=== PATIENT | male | born 1975 | race Caucasian/White ===

== ENCOUNTER 2016-10-28 05:44 | Emergency (ER) | payer OTHER ==
[~2016-10-28] VITALS: Ht 25.4 cm; Wt 70.0 kg
[2016-10-28] MEDS ORDERED: LORazepam 2 MG/ML VIAL IV ONE (06:15)
--- NOTE | 2016-10-28 06:21 | PD ---
HPI Chief Complaint: Barker act Time Seen by Provider: 06:18 Travel History International Travel<30 days: No Contact w/Intl Traveler<30days: No Traveled to known affect area: No History of Present Illness HPI 40-year-old white male brought into the ER under Barker act by PD. The patient was wandering out in traffic. The patient appears to be confused and disoriented. He states that there are people out after him trying to hurt him. He is not making any sense. He is not answering questions appropriately. Review the medical records indicates psychotic disorder in the past as well as polysubstance abuse. Patient denies any suicidal homicidal ideation. PFSH Past Medical History Narrative Medical Substance abuse, psychotic disorder Diminished Hearing: No Tetanus Vaccination: Unknown Past Surgical History Surgical History: Unable to Obtain Social History Alcohol Use: Yes Tobacco Use: Yes Substance Use: Yes (methaphetamines) Allergies-Medications (Allergen,Severity, Reaction): Coded Allergies: No Known Allergies (Verified , 05/23/16) Reported Meds & Prescriptions Reported Meds & Active Scripts Active No Active Prescriptions or Reported Medications Review of Systems ROS Limitations: Psychotic Physical Exam Narrative GENERAL: Well-nourished, well-developed patient. SKIN: Warm and dry. HEAD: Normocephalic and atraumatic. EYES: No scleral icterus. No injection or drainage. ENT: No nasal drainage noted. Mucous membranes pink. Airway patent. Dry mucous membranes NECK: Supple, trachea midline. Moves head freely without obvious discomfort. CARDIOVASCULAR: Regular tachycardic rate and rhythm without murmurs, gallops, or rubs. RESPIRATORY: Breath sounds equal bilaterally. No accessory muscle use. GASTROINTESTINAL: Abdomen soft, non-tender, nondistended. EXTREMITIES: No cyanosis or edema. BACK: Nontender without obvious deformity. No CVA tenderness. NEURO: Patient is alert and oriented. no sensorimotor deficits. Nonfocal. Normal speech. PSYCH: Acutely confused and delusional. Data Data Orders Complete Blood Count With Diff (10/28/16 06:15) Comprehensive Metabolic Panel (10/28/16 06:15) Iv Access Insert/Monitor (10/28/16 06:15) Psych Screen (10/28/16 06:15) Lorazepam Inj (Ativan Inj) (10/28/16 06:15) Drug Screen, Random Urine (10/28/16 06:15) Alcohol (Ethanol) (10/28/16 06:15) Salicylates (Aspirin) (10/28/16 06:15) Tylenol (Acetaminophen) (10/28/16 06:15) MDM Medical Decision Making Medical Screen Exam Complete: Yes Emergency Medical Condition: Yes Medical Record Reviewed: Yes Differential Diagnosis MDM: High Differential diagnoses: Schizophrenia, schizoaffective disorder, bipolar, anxiety, depression, adjustment reaction, mood disorder NOS, ODD, depressive disorder NOS, dementia, dementia with agitation, psychosis NOS, substance induced mood disorder, intermittent explosive disorder, Asperger syndrome, infection,electrolyte abnormality, malingering. Narrative Course Mental health screening discussed with the patient. Psychiatric screen ordered. IV access is obtained. Patient's given a liter bolus of saline and 1 mg of Ativan IV. Routine laboratories has some for analysis. I suspect this is a substance-induced psychotic disorder. Diagnosis Primary Impression: Substance-induced psychotic disorder with delusions Scripts No Active Prescriptions or Reported Meds Condition: Stable Casey Alicea Oct 28, 2016 06:21
[2016-10-28 06:31] VITALS: BP 131/90; PULSE 127; RESP 2; RESP 20; TEMP 98.6; O2SAT 99
[2016-10-28 06:38] VITALS: BP 131/90; PULSE 127; RESP 20; TEMP 98.6; O2SAT 99
[2016-10-28 06:40] LABS: AUTOMATED NEUTROPHIL # 9.1 TH/MM3 (1.8-7.7); BASOPHIL # 0.1 TH/MM3 (0-0.2); BASOPHIL % 0.5 % (0.0-2.0); EOSINOPHIL % 0.1 % (0.0-4.0); HEMATOCRIT 42.8 % (39.0-51.0); HEMO FLAGS DIFF FINAL; LYMPH % 11.7 % (9.0-44.0); LYMPHOCYTE # 1.3 TH/MM3 (1.0-4.8); MEAN CELL VOLUME 82.7 FL (80.0-100.0); MEAN CORPUSCULAR HEMOGLOBIN 27.6 PG (27.0-34.0); MEAN CORPUSCULAR HGB CONC 33.3 % (32.0-36.0); MONO % 8.4 % (0.0-8.0); NEUT % 79.3 % (16.0-70.0); PLATELET COUNT 349 TH/MM3 (150-450); RED BLOOD COUNT 5.18 MIL/MM3 (4.50-5.90); RED CELL DISTRIBUTION WIDTH 13.2 % (11.6-17.2); WHITE BLOOD COUNT 11.5 TH/MM3 (4.0-11.0)
[2016-10-28 07:03] LABS: ACETAMINOPHEN LESS THAN 2.0 MCG/ML (10.0-30.0); ALKALINE PHOSPHATASE 56 U/L (45-117); ALT (GPT) 41 U/L (12-78); ANION GAP 10 MEQ/L (5-15); AST (GOT) 53 U/L (15-37); BICARBONATE 27.9 MEQ/L (21.0-32.0); BLOOD UREA NITROGEN 23 MG/DL (7-18); CHLORIDE 99 MEQ/L (98-107); GLOMERULAR FILTRATION RATE 65 ML/MIN (>89); POTASSIUM 4.2 MEQ/L (3.5-5.1); SODIUM (NA) 137 MEQ/L (136-145); TOTAL BILIRUBIN ADULT 1.1 MG/DL (0.2-1.0)
[2016-10-28 08:52] VITALS: BP 116/68; PULSE 90; RESP 18; O2SAT 100
[2016-10-28 12:05] VITALS: BP 127/82; PULSE 107; RESP 18; O2SAT 100
[2016-10-28] MEDS ORDERED: LORazepam 2 MG/ML VIAL IV PUSH ONE (14:00)
[2016-10-28 14:46] VITALS: BP 146/94; PULSE 93; RESP 18; O2SAT 100
[2016-10-28 17:34] VITALS: BP 137/82; PULSE 119; RESP 20; TEMP 96.7; O2SAT 100
== END 2016-10-28 21:04 ==
LOC: NEPA 05:44 → NEPJ 21:04
DX: F19.959 Other psychoactive substance use, unspecified with psychoactive substance-induced psychotic disorder, unspecified (principal)
CPT/HCPCS: 80053; 80320; 85025; 96374; 96376; 99285; J2060; 80329; G0480

== ENCOUNTER 2016-11-14 03:11 | Emergency (ER) | payer OTHER ==
[~2016-11-14] VITALS: Ht 172.7 cm; Wt 65.0 kg
[2016-11-14 03:26] VITALS: BP 154/98; PULSE 119; RESP 24; TEMP 99; O2SAT 100
[2016-11-14] MEDS ORDERED: LORazepam 2 MG/ML VIAL IM ONE (03:45)
[2016-11-14] MEDS ORDERED: HALOPERIDOL LACTATE 5 MG/ML AMP IM ONE (03:45)
[2016-11-14 04:41] LABS: AUTOMATED NEUTROPHIL # 7.6 TH/MM3 (1.8-7.7); BASOPHIL % 0.4 % (0.0-2.0); EOSINOPHIL % 0.3 % (0.0-4.0); HEMATOCRIT 42.2 % (39.0-51.0); HEMO FLAGS DIFF FINAL; LYMPH % 14.8 % (9.0-44.0); LYMPHOCYTE # 1.5 TH/MM3 (1.0-4.8); MEAN CELL VOLUME 81.9 FL (80.0-100.0); MEAN CORPUSCULAR HEMOGLOBIN 27.9 PG (27.0-34.0); MEAN CORPUSCULAR HGB CONC 34.1 % (32.0-36.0); MONO % 7.1 % (0.0-8.0); NEUT % 77.4 % (16.0-70.0); PLATELET COUNT 316 TH/MM3 (150-450); RED BLOOD COUNT 5.16 MIL/MM3 (4.50-5.90); RED CELL DISTRIBUTION WIDTH 13.5 % (11.6-17.2); WHITE BLOOD COUNT 9.8 TH/MM3 (4.0-11.0)
[2016-11-14 04:54] LABS: ALKALINE PHOSPHATASE 62 U/L (45-117); ALT (GPT) 31 U/L (12-78); ANION GAP 15 MEQ/L (5-15); AST (GOT) 41 U/L (15-37); BICARBONATE 25.1 MEQ/L (21.0-32.0); BLOOD UREA NITROGEN 20 MG/DL (7-18); CHLORIDE 97 MEQ/L (98-107); GLOMERULAR FILTRATION RATE 50 ML/MIN (>89); SODIUM (NA) 137 MEQ/L (136-145); TOTAL BILIRUBIN ADULT 0.6 MG/DL (0.2-1.0)
[2016-11-14 04:56] LABS: ACETAMINOPHEN LESS THAN 2.0 MCG/ML (10.0-30.0); POTASSIUM 3.6 MEQ/L (3.5-5.1)
--- NOTE | 2016-11-14 05:12 | PD ---
HPI Chief Complaint: Psychiatric Symptoms Time Seen by Provider: 05:09 Travel History International Travel<30 days: No Contact w/Intl Traveler<30days: No Traveled to known affect area: No History of Present Illness HPI 41-year-old white male presents to emergency department under Barker act by PD. The patient is acting out and psychotic. He is medicated by Dr. Azevedo with Haldol and Ativan IV. According to the Barker act the patient appeared to be under the influence of drugs and was not making sense. He was wandering out in traffic and it was a risk to self harm. This is a patient who I have seen in the past. The patient is resting comfortable in the examination room. He is in soft restraints. The patient is unable to give any meaningful history. PFS Past Medical History Narrative Medical Substance abuse Medical History: Unable to Obtain Diminished Hearing: No Tetanus Vaccination: < 5 Years Past Surgical History Surgical History: Unable to Obtain Social History Alcohol Use: Yes Tobacco Use: Yes Substance Use: Yes (methaphetamines) Allergies-Medications (Allergen,Severity, Reaction): Coded Allergies: No Known Allergies (Verified , 11/14/16) Reported Meds & Prescriptions Reported Meds & Active Scripts Active Active Prescriptions or Reported Medications Unobtainable Review of Systems ROS Limitations: Psychotic Physical Exam Narrative GENERAL: Well-nourished, well-developed patient. SKIN: Warm and dry. HEAD: Normocephalic and atraumatic. EYES: No scleral icterus. No injection or drainage. ENT: No nasal drainage noted. Mucous membranes pink. Airway patent. NECK: Supple, trachea midline. Moves head freely without obvious discomfort. CARDIOVASCULAR: Regular rate and rhythm without murmurs, gallops, or rubs. RESPIRATORY: Breath sounds equal bilaterally. No accessory muscle use. GASTROINTESTINAL: Abdomen soft, non-tender, nondistended. EXTREMITIES: No cyanosis or edema. BACK: Nontender without obvious deformity. No CVA tenderness. NEURO: Patient is alert and oriented. no sensorimotor deficits. Nonfocal. Normal speech. PSYCH: Poor judgment. Acutely psychotic. Data Data Last Documented VS Vital Signs Date Time Temp Pulse Resp B/P Pulse Ox O2 Delivery O2 Flow Rate FiO2 11/14/16 03:26 99.0 119 24 154/98 100 Orders Complete Blood Count With Diff (11/14/16 03:40) Comprehensive Metabolic Panel (11/14/16 03:40) Urinalysis - C+S If Indicated (11/14/16 03:40) Psych Screen (11/14/16 03:40) Haloperidol Inj (Haldol Inj) (11/14/16 03:45) Lorazepam Inj (Ativan Inj) (11/14/16 03:45) Restraints Non-Violent NENA.Q3H (11/14/16 03:40) Drug Screen, Random Urine (11/14/16 03:40) Alcohol (Ethanol) (11/14/16 03:40) Salicylates (Aspirin) (11/14/16 03:40) Tylenol (Acetaminophen) (11/14/16 03:40) Labs Laboratory Tests Test 11/14/16 04:12 White Blood Count 9.8 TH/MM3 Red Blood Count 5.16 MIL/MM3 Hemoglobin 14.4 GM/DL Hematocrit 42.2 % Mean Corpuscular Volume 81.9 FL Mean Corpuscular Hemoglobin 27.9 PG Mean Corpuscular Hemoglobin 34.1 % Concent Red Cell Distribution Width 13.5 % Platelet Count 316 TH/MM3 Mean Platelet Volume 8.0 FL Neutrophils (%) (Auto) 77.4 % Lymphocytes (%) (Auto) 14.8 % Monocytes (%) (Auto) 7.1 % Eosinophils (%) (Auto) 0.3 % Basophils (%) (Auto) 0.4 % Neutrophils # (Auto) 7.6 TH/MM3 Lymphocytes # (Auto) 1.5 TH/MM3 Monocytes # (Auto) 0.7 TH/MM3 Eosinophils # (Auto) 0.0 TH/MM3 Basophils # (Auto) 0.0 TH/MM3 CBC Comment DIFF FINAL Differential Comment Sodium Level 137 MEQ/L Potassium Level 3.6 MEQ/L Chloride Level 97 MEQ/L Carbon Dioxide Level 25.1 MEQ/L Anion Gap 15 MEQ/L Blood Urea Nitrogen 20 MG/DL Creatinine 1.55 MG/DL Estimat Glomerular Filtration 50 ML/MIN Rate Random Glucose 169 MG/DL Calcium Level 9.7 MG/DL Total Bilirubin 0.6 MG/DL Aspartate Amino Transf 41 U/L (AST/SGOT) Alanine Aminotransferase 31 U/L (ALT/SGPT) Alkaline Phosphatase 62 U/L Total Protein 8.2 GM/DL Albumin 4.5 GM/DL Salicylates Level LESS THAN 1.7 MG/DL Acetaminophen Level LESS THAN 2.0 MCG/ML Ethyl Alcohol Level LESS THAN 3 MG/DL MDM Medical Decision Making Medical Screen Exam Complete: Yes Emergency Medical Condition: Yes Medical Record Reviewed: Yes Interpretation(s) Laboratory Tests Test 11/14/16 04:12 White Blood Count 9.8 TH/MM3 Red Blood Count 5.16 MIL/MM3 Hemoglobin 14.4 GM/DL Hematocrit 42.2 % Mean Corpuscular Volume 81.9 FL Mean Corpuscular Hemoglobin 27.9 PG Mean Corpuscular Hemoglobin 34.1 % Concent Red Cell Distribution Width 13.5 % Platelet Count 316 TH/MM3 Mean Platelet Volume 8.0 FL Neutrophils (%) (Auto) 77.4 % Lymphocytes (%) (Auto) 14.8 % Monocytes (%) (Auto) 7.1 % Eosinophils (%) (Auto) 0.3 % Basophils (%) (Auto) 0.4 % Neutrophils # (Auto) 7.6 TH/MM3 Lymphocytes # (Auto) 1.5 TH/MM3 Monocytes # (Auto) 0.7 TH/MM3 Eosinophils # (Auto) 0.0 TH/MM3 Basophils # (Auto) 0.0 TH/MM3 CBC Comment DIFF FINAL Differential Comment Sodium Level 137 MEQ/L Potassium Level 3.6 MEQ/L Chloride Level 97 MEQ/L Carbon Dioxide Level 25.1 MEQ/L Anion Gap 15 MEQ/L Blood Urea Nitrogen 20 MG/DL Creatinine 1.55 MG/DL Estimat Glomerular Filtration 50 ML/MIN Rate Random Glucose 169 MG/DL Calcium Level 9.7 MG/DL Total Bilirubin 0.6 MG/DL Aspartate Amino Transf 41 U/L (AST/SGOT) Alanine Aminotransferase 31 U/L (ALT/SGPT) Alkaline Phosphatase 62 U/L Total Protein 8.2 GM/DL Albumin 4.5 GM/DL Salicylates Level LESS THAN 1.7 MG/DL Acetaminophen Level LESS THAN 2.0 MCG/ML Ethyl Alcohol Level LESS THAN 3 MG/DL Differential Diagnosis MDM: High Differential diagnoses: Schizophrenia, schizoaffective disorder, bipolar, anxiety, depression, adjustment reaction, mood disorder NOS, ODD, depressive disorder NOS, dementia, dementia with agitation, psychosis NOS, substance induced mood disorder, intermittent explosive disorder, Asperger syndrome, infection,electrolyte abnormality, malingering. Narrative Course Mental health screening discussed with the patient. Psychiatric screen ordered. This is substance induced psychosis Diagnosis Primary Impression: Substance-induced psychotic disorder with delusions Scripts Unable to Obtain Active Prescriptions or Reported Meds Condition: Casey Chapman Nov 14, 2016 05:12
[2016-11-14 06:08] VITALS: BP 114/58; PULSE 94; RESP 16; O2SAT 98
--- NOTE | 2016-11-14 08:28 | PD ---
Data Data Last Documented VS Vital Signs Date Time Temp Pulse Resp B/P Pulse Ox O2 Delivery O2 Flow Rate FiO2 11/14/16 06:08 94 16 114/58 98 Room Air 11/14/16 03:26 99.0 Orders Complete Blood Count With Diff (11/14/16 03:40) Comprehensive Metabolic Panel (11/14/16 03:40) Urinalysis - C+S If Indicated (11/14/16 03:40) Psych Screen (11/14/16 03:40) Haloperidol Inj (Haldol Inj) (11/14/16 03:45) Lorazepam Inj (Ativan Inj) (11/14/16 03:45) Restraints Non-Violent NENA.Q3H (11/14/16 03:40) Drug Screen, Random Urine (11/14/16 03:40) Alcohol (Ethanol) (11/14/16 03:40) Salicylates (Aspirin) (11/14/16 03:40) Tylenol (Acetaminophen) (11/14/16 03:40) Diet Regular Basic (11/14/16 Breakfast) Labs Laboratory Tests Test 11/14/16 04:12 White Blood Count 9.8 TH/MM3 Red Blood Count 5.16 MIL/MM3 Hemoglobin 14.4 GM/DL Hematocrit 42.2 % Mean Corpuscular Volume 81.9 FL Mean Corpuscular Hemoglobin 27.9 PG Mean Corpuscular Hemoglobin 34.1 % Concent Red Cell Distribution Width 13.5 % Platelet Count 316 TH/MM3 Mean Platelet Volume 8.0 FL Neutrophils (%) (Auto) 77.4 % Lymphocytes (%) (Auto) 14.8 % Monocytes (%) (Auto) 7.1 % Eosinophils (%) (Auto) 0.3 % Basophils (%) (Auto) 0.4 % Neutrophils # (Auto) 7.6 TH/MM3 Lymphocytes # (Auto) 1.5 TH/MM3 Monocytes # (Auto) 0.7 TH/MM3 Eosinophils # (Auto) 0.0 TH/MM3 Basophils # (Auto) 0.0 TH/MM3 CBC Comment DIFF FINAL Differential Comment Sodium Level 137 MEQ/L Potassium Level 3.6 MEQ/L Chloride Level 97 MEQ/L Carbon Dioxide Level 25.1 MEQ/L Anion Gap 15 MEQ/L Blood Urea Nitrogen 20 MG/DL Creatinine 1.55 MG/DL Estimat Glomerular Filtration 50 ML/MIN Rate Random Glucose 169 MG/DL Calcium Level 9.7 MG/DL Total Bilirubin 0.6 MG/DL Aspartate Amino Transf 41 U/L (AST/SGOT) Alanine Aminotransferase 31 U/L (ALT/SGPT) Alkaline Phosphatase 62 U/L Total Protein 8.2 GM/DL Albumin 4.5 GM/DL Salicylates Level LESS THAN 1.7 MG/DL Acetaminophen Level LESS THAN 2.0 MCG/ML Ethyl Alcohol Level LESS THAN 3 MG/DL MDM Supervised Visit with HOLLY: Yes Narrative Course I, Dr. Azevedo, have reviewed the advance practice practitioner's documentation and am in agreement, met with the patient face to face, made the diagnosis, and the medical decision making was done by me. *My assessment and Findings: Agree with Fernie Everett's note has documented. Patient agitated and non- redirectable in the emergency department. He is under Barker act. He had to be placed briefly in 4-point restraints and sedated with Haldol and Ativan. Nursing did discuss the patient's father who states that he is probably using meth again and agents father has kicked him out of the house for using it. Diagnosis Primary Impression: Substance-induced psychotic disorder with delusions Scripts Unable to Obtain Active Prescriptions or Reported Meds Condition: Stable Jonny Azevedo MD Nov 14, 2016 08:28
[2016-11-14 11:22] VITALS: BP 133/64; PULSE 104; TEMP 96; O2SAT 99
[2016-11-14 14:45] VITALS: BP 112/49; PULSE 105; RESP 18; TEMP 96.1; O2SAT 98
[2016-11-14 17:58] VITALS: BP 96/50; PULSE 101; TEMP 97.1; O2SAT 98
[2016-11-14 20:15] LABS: BLOOD, URINE NEG (NEG); GLUCOSE,URINE NEG (NEG); KETONE, URINE NEG (NEG); NITRITE,URINE NEG (NEG); URINE COLOR YELLOW (YELLW/STRAW)
[2016-11-14 20:26] LABS: BACTERIA, URINE OCC /hpf; CALCIUM OXALATE CRYSTALS,URINE FEW /hpf; COMMENT (UR) CULT NOT INDICATED; CULTURE IF INDICATED CULT NOT INDICATED
[2016-11-14 21:28] LABS: AMPHETAMINE, URINE POS (NEG); BARBITURATES, URINE NEG (NEG); COCAINE, URINE NEG (NEG)
[2016-11-14 22:01] VITALS: BP 99/60; PULSE 87; RESP 19; O2SAT 99
[2016-11-15 02:17] VITALS: BP 108/55; PULSE 81; RESP 18; O2SAT 99
[2016-11-15 06:51] VITALS: BP 102/51; PULSE 77; RESP 18; O2SAT 100
== END 2016-11-15 10:53 ==
LOC: NEPA 03:11 → NEPJ 11-15 10:53
DX: F19.959 Other psychoactive substance use, unspecified with psychoactive substance-induced psychotic disorder, unspecified (principal); Z72.0 Tobacco use; F15.20 Other stimulant dependence, uncomplicated
CPT/HCPCS: 80053; 80307; 81001; 85025; 96372; 99285; J1630; J2060; 80320

== ENCOUNTER 2017-02-14 11:33 | Emergency (ER) | payer SELFPAY ==
[~2017-02-14] VITALS: Ht 180.3 cm; Wt 65.0 kg
[2017-02-14 11:46] VITALS: BP 161/91; PULSE 117; RESP 18; TEMP 98.6; O2SAT 97
[2017-02-14 12:18] LABS: AUTOMATED NEUTROPHIL # 6.1 TH/MM3 (1.8-7.7); BASOPHIL % 0.5 % (0.0-2.0); EOSINOPHIL % 0.5 % (0.0-4.0); HEMATOCRIT 42.9 % (39.0-51.0); HEMO FLAGS DIFF FINAL; LYMPH % 20.8 % (9.0-44.0); LYMPHOCYTE # 1.8 TH/MM3 (1.0-4.8); MEAN CELL VOLUME 82.8 FL (80.0-100.0); MEAN CORPUSCULAR HEMOGLOBIN 27.8 PG (27.0-34.0); MEAN CORPUSCULAR HGB CONC 33.5 % (32.0-36.0); MONO % 9.5 % (0.0-8.0); NEUT % 68.7 % (16.0-70.0); PLATELET COUNT 297 TH/MM3 (150-450); RED BLOOD COUNT 5.17 MIL/MM3 (4.50-5.90); RED CELL DISTRIBUTION WIDTH 13.2 % (11.6-17.2); WHITE BLOOD COUNT 8.8 TH/MM3 (4.0-11.0)
[2017-02-14 12:41] LABS: ANION GAP 8 MEQ/L (5-15)
[2017-02-14 12:43] LABS: ACETAMINOPHEN LESS THAN 2.0 MCG/ML (10.0-30.0); ALKALINE PHOSPHATASE 57 U/L (45-117); ALT (GPT) 33 U/L (12-78); AST (GOT) 27 U/L (15-37); BICARBONATE 28.9 MEQ/L (21.0-32.0); BLOOD UREA NITROGEN 17 MG/DL (7-18); CHLORIDE 104 MEQ/L (98-107); GLOMERULAR FILTRATION RATE 77 ML/MIN (>89); POTASSIUM 3.4 MEQ/L (3.5-5.1); SODIUM (NA) 141 MEQ/L (136-145); TOTAL BILIRUBIN ADULT 0.5 MG/DL (0.2-1.0)
--- NOTE | 2017-02-14 13:16 | PD ---
HPI Chief Complaint: Psychiatric Symptoms Time Seen by Provider: 13:11 Travel History International Travel<30 days: No Contact w/Intl Traveler<30days: No Traveled to known affect area: No History of Present Illness HPI 41-year-old male that presents to the ED for evaluation of Mcgregor ACT. Patient apparently was found at a store acting belligerent and possibly on the influence of substances. Patient states that he has not used drugs today but he does have a known history of meth abuse. Patient denies any alcohol. Patient paramedics examination is the most part noncompetitive but is unable to provide some basic answers. He is not aggressive but he is concerned about his belongings which were placed on a back when he was put in a room. He denies any pain of any kind. He denies any suicidal or homicidal ideation. Patient states that he does not want to be here. He again is a poor historian as he will not really tell me what happened and he will not tell me if he been using meth. No pain. PFSH Past Medical History Diminished Hearing: No Social History Alcohol Use: Yes Tobacco Use: Yes Substance Use: Yes Allergies-Medications (Allergen,Severity, Reaction): Coded Allergies: No Known Allergies (Verified , 11/14/16) Reported Meds & Prescriptions Reported Meds & Active Scripts Active Active Prescriptions or Reported Medications Unobtainable Review of Systems ROS Limitations: Uncooperative Except as stated in HPI: all other systems reviewed are Neg Physical Exam Exam Limitations: Uncooperative Narrative GENERAL: SKIN: Warm and dry. HEAD: Atraumatic. Normocephalic. EYES: Pupils equal and round. No scleral icterus. No injection or drainage. ENT: No nasal bleeding or discharge. Mucous membranes pink and moist. The tongue is midline. No uvula deviation. NECK: Trachea midline. No JVD. CARDIOVASCULAR: Regular rate and rhythm. No murmurs, S3, S4. RESPIRATORY: No accessory muscle use. Clear to auscultation. Breath sounds equal bilaterally. GASTROINTESTINAL: Abdomen soft, non-tender, nondistended. Hepatic and splenic margins not palpable. MUSCULOSKELETAL: Extremities without clubbing, cyanosis, or edema. No obvious deformities. Full range of motion of the upper and lower extremities bilaterally. 2+ pulses bilaterally. NEUROLOGICAL: Awake and alert. No obvious cranial nerve deficits. Motor grossly within normal limits. Five out of 5 muscle strength in the arms and legs. Normal speech. PSYCHIATRIC: Appropriate mood and affect; insight and judgment normal. Data Data Last Documented VS Vital Signs Date Time Temp Pulse Resp B/P Pulse Ox O2 Delivery O2 Flow Rate FiO2 02/14/17 11:46 98.6 117 18 161/91 97 Orders Complete Blood Count With Diff (02/14/17 11:45) Comprehensive Metabolic Panel (02/14/17 11:45) Psych Screen (02/14/17 11:45) Drug Screen, Random Urine (02/14/17 11:45) Alcohol (Ethanol) (02/14/17 11:45) Salicylates (Aspirin) (02/14/17 11:45) Tylenol (Acetaminophen) (02/14/17 11:45) Labs Laboratory Tests Test 02/14/17 11:50 White Blood Count 8.8 TH/MM3 Red Blood Count 5.17 MIL/MM3 Hemoglobin 14.4 GM/DL Hematocrit 42.9 % Mean Corpuscular Volume 82.8 FL Mean Corpuscular Hemoglobin 27.8 PG Mean Corpuscular Hemoglobin 33.5 % Concent Red Cell Distribution Width 13.2 % Platelet Count 297 TH/MM3 Mean Platelet Volume 7.4 FL Neutrophils (%) (Auto) 68.7 % Lymphocytes (%) (Auto) 20.8 % Monocytes (%) (Auto) 9.5 % Eosinophils (%) (Auto) 0.5 % Basophils (%) (Auto) 0.5 % Neutrophils # (Auto) 6.1 TH/MM3 Lymphocytes # (Auto) 1.8 TH/MM3 Monocytes # (Auto) 0.8 TH/MM3 Eosinophils # (Auto) 0.0 TH/MM3 Basophils # (Auto) 0.0 TH/MM3 CBC Comment DIFF FINAL Differential Comment Sodium Level 141 MEQ/L Potassium Level 3.4 MEQ/L Chloride Level 104 MEQ/L Carbon Dioxide Level 28.9 MEQ/L Anion Gap 8 MEQ/L Blood Urea Nitrogen 17 MG/DL Creatinine 1.06 MG/DL Estimat Glomerular Filtration 77 ML/MIN Rate Random Glucose 98 MG/DL Calcium Level 9.7 MG/DL Total Bilirubin 0.5 MG/DL Aspartate Amino Transf 27 U/L (AST/SGOT) Alanine Aminotransferase 33 U/L (ALT/SGPT) Alkaline Phosphatase 57 U/L Total Protein 8.2 GM/DL Albumin 4.5 GM/DL Salicylates Level LESS THAN 1.7 MG/DL Acetaminophen Level LESS THAN 2.0 MCG/ML Ethyl Alcohol Level LESS THAN 3 MG/DL MDM Medical Decision Making Medical Screen Exam Complete: Yes Emergency Medical Condition: Yes Medical Record Reviewed: Yes Interpretation(s) CBC & BMP Diagram 02/14/17 11:50 LFTs within normal limits. Tox negative Differential Diagnosis Substance abuse versus substance-induced psychotic disorder versus psychotic disorder versus normal exam Narrative Course 41-year-old male that presents to the ED for evaluation of substance abuse. Patient was properly examined and was found to have no signs of acute medical distress. Labs were drawn. Patient will be medically clear. Patient will be allowed to sleep of his intoxication until his medically sober he has a responsible adult to pick him up. This was discussed in my attending Dr Mike who was made aware of findings and who agrees with plan. At 1320 hrs. informed by ED nurse that apparently patient had left before anybody could stop them. Patient was not in the room. Police will be contacted. IV had been removed by nurse. At 1333 hrs patient comes to the nurse desk and tells us that his ride is coming. He apparently was walking around the ER. Patient tells that he has a right. Patient will be allowed to go home once his ride gets here. Follow with PCP. See ED worsening symptoms. Diagnosis Primary Impression: Substance abuse Referrals: [facility] Patient Instructions: General Instructions Additional Instructions: Stop using drugs. Follow with PCP. See ED worsening symptoms. Med/Other Pt SpecificInfo: No Change to Meds Scripts Unable to Obtain Active Prescriptions or Reported Meds Disposition: 07 AGAINST MEDICAL ADVICE Condition: Stable Jorje Lewis Feb 14, 2017 13:16
== END 2017-02-14 13:56 | disposition left against medical advice (07) ==
LOC: NEPE 11:33
DX: F19.10 Other psychoactive substance abuse, uncomplicated (principal); Z53.21 Procedure and treatment not carried out due to patient leaving prior to being seen by health care provider
CPT/HCPCS: 80053; 80307; 85025; 99283

== ENCOUNTER 2017-02-15 00:10 | Emergency (ER) | payer SELFPAY ==
[~2017-02-15] VITALS: Ht 177.8 cm; Wt 62.2 kg
[2017-02-15] VITALS (9 sets, daily range): BP systolic 97–155; BP diastolic 54–105; PULSE 70–119; RESP 16–18; TEMP 98.5–99; O2SAT 97–100
--- NOTE | 2017-02-15 00:37 | PD ---
HPI Chief Complaint: Pain: Acute or Chronic Time Seen by Provider: 00:34 Travel History International Travel<30 days: No Contact w/Intl Traveler<30days: No Traveled to known affect area: No History of Present Illness HPI 41-year-old male who was brought to the [facility] earlier today under Mcgregor Act for acting belligerent and suspected intoxication, released from the hospital later this evening, here voluntarily for evaluation. The patient is unable to tell me why he is here for evaluation. His thoughts are very tangential and he appears to be having auditory and visual hallucinations. When asked if he has been doing drugs today, he tells me yes, but he does not tell me what he has been taking. Chart review shows that the patient has had urine drug screens positive for amphetamines and cocaine. He is denying suicidal or homicidal ideation. Patient tells me that I do not understand what is going on with him and that there are 2 oral to miss life and he is stuck between them. He appears to be talking to people who are not present in the room. He denies any physical complaints. He is denying any pain to me. [facility] Past Medical History Medical History: Denies Significant Hx Diminished Hearing: No Tetanus Vaccination: Unknown Influenza Vaccination: No Past Surgical History Surgical History: No Previous Surgery Social History Alcohol Use: No Tobacco Use: No Substance Use: No (DENIES) Allergies-Medications (Allergen,Severity, Reaction): Coded Allergies: No Known Allergies (Verified , 02/15/17) Reported Meds & Prescriptions Reported Meds & Active Scripts Active No Active Prescriptions or Reported Medications Review of Systems Except as stated in HPI: all other systems reviewed are Neg Physical Exam Narrative GENERAL: Well-developed, well-nourished, no apparent distress. SKIN: Focused skin assessment warm/dry. No rashes. HEAD: Atraumatic. Normocephalic. EYES: Pupils equal and round. No scleral icterus. No injection or drainage. ENT: Mucous membranes pink and dry. NECK: Trachea midline. No JVD. CARDIOVASCULAR: Tachycardic, regular. RESPIRATORY: No accessory muscle use. Clear to auscultation. Breath sounds equal bilaterally. GASTROINTESTINAL: Abdomen soft, non-tender, nondistended. MUSCULOSKELETAL: No obvious deformities. No clubbing. No cyanosis. No edema. NEUROLOGICAL: Awake and alert. No obvious cranial nerve deficits. Motor grossly within normal limits. Normal speech. PSYCHIATRIC: Pressure speech. Tangential thoughts. Apparent visual and auditory hallucinations. Data Data Last Documented VS Vital Signs Date Time Temp Pulse Resp B/P Pulse Ox O2 Delivery O2 Flow Rate FiO2 02/15/17 00:26 18 02/15/17 00:14 99.0 119 155/105 98 Orders Complete Blood Count With Diff (02/15/17 00:34) Comprehensive Metabolic Panel (02/15/17 00:34) Psych Screen (02/15/17 00:34) Drug Screen, Random Urine (02/15/17 00:34) Alcohol (Ethanol) (02/15/17 00:34) Salicylates (Aspirin) (02/15/17 00:34) Tylenol (Acetaminophen) (02/15/17 00:34) Sodium Chlor 0.9% 1000 Ml Inj (Ns 1000 M (02/15/17 00:45) MDM Medical Decision Making Medical Screen Exam Complete: Yes Emergency Medical Condition: Yes Differential Diagnosis Acute psychosis, drug-induced mood disorder/psychosis Narrative Course Patient has very pressured speech and tangential thoughts. He also appears to be talking to people in the room that are not there, having both visual and auditory hallucinations. The patient is clearly a danger to himself although he is denying suicidal or homicidal ideation. He is clearly in a psychotic state. This could be drug-induced. The patient's brother spoke with the triage nurse and told her that the patient ordered a drug of the Internet which he took a couple months ago, and since that time he has not been the same. The patient had lab work earlier today which was reviewed by me and was unremarkable. Because I believe the patient is a danger to himself, I placed him under a Barker act. He'll be transported to [facility] for psychiatric evaluation. Diagnosis Primary Impression: Acute psychosis Scripts No Active Prescriptions or Reported Meds Ricco Cohn MD Feb 15, 2017 00:37
[2017-02-15] MEDS ORDERED: SODIUM CHLOR 0.9% 1000 ML INJ 1,000 ML IV ONE (00:45)
[2017-02-15 02:46] LABS: BASOPHIL # 0.1 TH/MM3 (0-0.2); BASOPHIL % 0.8 % (0.0-2.0); EOSINOPHIL # 0.1 TH/MM3 (0-0.4); HEMO FLAGS DIFF FINAL; LYMPH % 20.8 % (9.0-44.0); LYMPHOCYTE # 1.8 TH/MM3 (1.0-4.8); MEAN CELL VOLUME 82.1 FL (80.0-100.0); MEAN CORPUSCULAR HEMOGLOBIN 27.7 PG (27.0-34.0); MEAN CORPUSCULAR HGB CONC 33.8 % (32.0-36.0); MONO % 8.5 % (0.0-8.0); NEUT % 68.9 % (16.0-70.0); PLATELET COUNT 301 TH/MM3 (150-450); RED BLOOD COUNT 5.48 MIL/MM3 (4.50-5.90); RED CELL DISTRIBUTION WIDTH 13.1 % (11.6-17.2); WHITE BLOOD COUNT 8.6 TH/MM3 (4.0-11.0)
[2017-02-15 02:53] LABS: ALKALINE PHOSPHATASE 57 U/L (45-117); ALT (GPT) 34 U/L (12-78)
[2017-02-15 02:57] LABS: ANION GAP 6 MEQ/L (5-15); AST (GOT) 37 U/L (15-37); BICARBONATE 31.5 MEQ/L (21.0-32.0); BLOOD UREA NITROGEN 16 MG/DL (7-18); CHLORIDE 103 MEQ/L (98-107); GLOMERULAR FILTRATION RATE 80 ML/MIN (>89); POTASSIUM 3.7 MEQ/L (3.5-5.1); SODIUM (NA) 140 MEQ/L (136-145)
[2017-02-15 02:59] LABS: ACETAMINOPHEN LESS THAN 2.0 MCG/ML (10.0-30.0)
[2017-02-15] MEDS ORDERED: diphenhydrAMINE HCL 50 MG/ML VIAL IV PUSH ONE (04:15)
[2017-02-15] MEDS ORDERED: LORazepam 2 MG/ML VIAL IV PUSH ONE (04:15)
[2017-02-15] MEDS ORDERED: HALOPERIDOL LACTATE 5 MG/ML AMP IM ONE (04:15)
--- NOTE | 2017-02-15 04:30 | PD ---
Physical Exam Narrative General: The patient is a well-developed well-nourished male, agitated on arrival, talking to "ghosts under the bed without her having sex". Head and Neck exam: Head is normocephalic atraumatic. Eyes: EOMI, pupils are equal round and reactive to light. Nose: Midline septum with pink mucous membranes Mouth: Dentition unremarkable. Moist mucus membranes. Posterior oropharynx is not erythematous. No tonsillar hypertrophy. Uvula midline. Airway patent. Neck: No palpable lymphadenopathy. No nuchal rigidity. No thyromegaly. Cardiovascular: Sinus tachycardia in the low 100s without any murmurs gallops or rubs. No pulse deficits to the extremities on simultaneous auscultation and palpation of his radial artery Lungs: Clear to auscultation bilaterally. No wheezes, rhonchi, or rales. Abdomen: Soft, without tenderness to palpation in all 4 quadrants of the abdomen. No guarding, rebound, or rigidity. Normal bowel sounds are audible. No tenderness on palpation of McBurney's point. Extremities: No clubbing, cyanosis, or edema. 2+ pulses in all 4 extremities. No calf tenderness on palpation. Back: No costovertebral angle tenderness to palpation. Neurologic Exam: The patient has pressured speech. He is uncooperative with formal neurologic testing although has no evidence of facial asymmetry. No sensory deficits to his extremities. He has strength is 5 over 5 in all 4 extremities. Skin Exam: No rash noted. Intact skin that is warm and dry. Data Data Last Documented VS Vital Signs Date Time Temp Pulse Resp B/P Pulse Ox O2 Delivery O2 Flow Rate FiO2 02/15/17 02:16 110 16 140/86 97 Room Air 02/15/17 00:14 99.0 Orders Complete Blood Count With Diff (02/15/17 00:34) Comprehensive Metabolic Panel (02/15/17 00:34) Psych Screen (02/15/17 00:34) Drug Screen, Random Urine (02/15/17 00:34) Alcohol (Ethanol) (02/15/17 00:34) Salicylates (Aspirin) (02/15/17 00:34) Tylenol (Acetaminophen) (02/15/17 00:34) Sodium Chlor 0.9% 1000 Ml Inj (Ns 1000 M (02/15/17 00:45) Lorazepam Inj (Ativan Inj) (02/15/17 04:15) Diphenhydramine Inj (Benadryl Inj) (02/15/17 04:15) Haloperidol Inj (Haldol Inj) (02/15/17 04:15) Labs Laboratory Tests Test 02/15/17 02:25 White Blood Count 8.6 TH/MM3 Red Blood Count 5.48 MIL/MM3 Hemoglobin 15.2 GM/DL Hematocrit 45.0 % Mean Corpuscular Volume 82.1 FL Mean Corpuscular Hemoglobin 27.7 PG Mean Corpuscular Hemoglobin 33.8 % Concent Red Cell Distribution Width 13.1 % Platelet Count 301 TH/MM3 Mean Platelet Volume 7.6 FL Neutrophils (%) (Auto) 68.9 % Lymphocytes (%) (Auto) 20.8 % Monocytes (%) (Auto) 8.5 % Eosinophils (%) (Auto) 1.0 % Basophils (%) (Auto) 0.8 % Neutrophils # (Auto) 6.0 TH/MM3 Lymphocytes # (Auto) 1.8 TH/MM3 Monocytes # (Auto) 0.7 TH/MM3 Eosinophils # (Auto) 0.1 TH/MM3 Basophils # (Auto) 0.1 TH/MM3 CBC Comment DIFF FINAL Differential Comment Sodium Level 140 MEQ/L Potassium Level 3.7 MEQ/L Chloride Level 103 MEQ/L Carbon Dioxide Level 31.5 MEQ/L Anion Gap 6 MEQ/L Blood Urea Nitrogen 16 MG/DL Creatinine 1.03 MG/DL Estimat Glomerular Filtration 80 ML/MIN Rate Random Glucose 111 MG/DL Calcium Level 9.7 MG/DL Total Bilirubin 1.0 MG/DL Aspartate Amino Transf 37 U/L (AST/SGOT) Alanine Aminotransferase 34 U/L (ALT/SGPT) Alkaline Phosphatase 57 U/L Total Protein 8.5 GM/DL Albumin 4.5 GM/DL Salicylates Level LESS THAN 1.7 MG/DL Acetaminophen Level LESS THAN 2.0 MCG/ML Ethyl Alcohol Level LESS THAN 3 MG/DL [facility] Medical Record Reviewed: Yes Supervised Visit with HOLLY: No Narrative Course During the course of the patients emergency department visit, the patients history, examination, and differential diagnosis were reviewed with the patient. The patient had IV access obtained and blood work sent for analysis. The patient was on a cardiac cath tech with oximetry and blood pressure monitoring. The patient was transferred from [place] for evaluation by the psychiatric screener under a Barker act. The patient was initially provided normal saline 1 L IV fluid bolus. For agitation as the patient was and yelling intermittently in the emergency department and agitated talking to the tomas, the patient was given Ativan 2 mg IV, Benadryl 25 mg IV, Haldol 5 mg IM. The patients laboratory studies were reviewed and remarkable for a white count of 8.6, hemoglobin 15.2, platelets 301 with 8.5 monocytes, CMP was remarkable for a glucose of 111, total protein 8.5, acetaminophen less than 2, alcohol less than 3, salicylate less than 1.7 The patient has been medically cleared for evaluation under a Barker act by the psychiatric screener and psychiatrist under a Barker act. Diagnosis Primary Impression: Acute psychosis Scripts No Active Prescriptions or Reported Meds Juanis Sosa MD Feb 15, 2017 04:30
[2017-02-15 15:15] LABS: AMPHETAMINE, URINE POS (NEG); BARBITURATES, URINE NEG (NEG); COCAINE, URINE NEG (NEG)
== END 2017-02-15 21:06 ==
LOC: PHED 00:10 → NEPJ 21:06
DX: F23 Brief psychotic disorder (principal); R00.0 Tachycardia, unspecified
CPT/HCPCS: 80053; 80307; 85025; 96361; 96372; 96374; 96375; 99284; J1200; J1630; J2060; J7030

== ENCOUNTER 2017-05-13 04:28 | Emergency (ER) | payer OTHER ==
[2017-05-13] VITALS (7 sets, daily range): BP systolic 103–144; BP diastolic 56–90; PULSE 66–109; RESP 15–22; TEMP 98.9; O2SAT 94–100
[~2017-05-13] VITALS: Ht 180.3 cm; Wt 74.0 kg
[2017-05-13] MEDS ORDERED: SODIUM CHLOR 0.9% 1000 ML INJ 1,000 ML IV SCH (04:47)
--- NOTE | 2017-05-13 04:57 | PD ---
HPI Chief Complaint: psychosis Time Seen by Provider: 04:40 Travel History International Travel<30 days: No Contact w/Intl Traveler<30days: No Traveled to known affect area: No History of Present Illness HPI This patient presents under Marchman act initiated by the Police Department. According to his paperwork, "he was stating that he was seeing ghosts that they had weapons and that it was going to be a blood bath. Subject pupils are extremely constricted and he was sweating an extreme amount. Subject was not making sense and stating that people are trying to hurt him. He was talking to things that we do not see... Making statements that people at [place] machetes and are after him. Stated he was seeing ghosts and other items that officers did not see" history is limited secondary to patient agitation. On initial examination he is combative, agitated, tachycardic. He is muttering to himself that everything is wrong. Upon chart review the appears that this patient has been seen here several times in the past for substance-induced psychotic disorders, acute psychosis, methamphetamine, sympathomimetic and cocaine abuse. PFSH Past Medical History Diminished Hearing: No Social History Alcohol Use: No Tobacco Use: No Substance Use: No (DENIES) Allergies-Medications (Allergen,Severity, Reaction): Coded Allergies: No Known Allergies (Verified , 05/13/17) Reported Meds & Prescriptions Reported Meds & Active Scripts Active No Active Prescriptions or Reported Medications Review of Systems ROS Limitations: Uncooperative, Combative Except as stated in HPI: all other systems reviewed are Neg Physical Exam Exam Limitations: Uncooperative, Combative Narrative GENERAL: This is a agitated male who is combative with staff and uncooperative with history or examination. He is somewhat diaphoretic as well as tachycardic. SKIN: Warm and dry. HEAD: Atraumatic. Normocephalic. EYES: Pupils equal and round. No scleral icterus. No injection or drainage. ENT: No nasal bleeding or discharge. Mucous membranes pink and moist. NECK: Trachea midline. No JVD. CARDIOVASCULAR: Regular rate and rhythm. No murmur appreciated. RESPIRATORY: No accessory muscle use. Clear to auscultation. Breath sounds equal bilaterally. GASTROINTESTINAL: Abdomen soft, non-tender, nondistended. Hepatic and splenic margins not palpable. MUSCULOSKELETAL: No obvious deformities. No clubbing. No cyanosis. No edema. NEUROLOGICAL: Awake and alert. No obvious cranial nerve deficits. Motor grossly within normal limits. Normal speech. PSYCHIATRIC: Insight and judgment are impaired. Data Data Last Documented VS Vital Signs Date Time Temp Pulse Resp B/P (MAP) Pulse Ox O2 Delivery O2 Flow Rate FiO2 05/13/17 05:15 109 22 05/13/17 05:12 98.9 144/90 (108) 100 Orders Orders Lorazepam Inj (Ativan Inj) (05/13/17 05:00) Electrocardiogram (05/13/17 04:47) Complete Blood Count With Diff (05/13/17 04:47) Comprehensive Metabolic Panel (05/13/17 04:47) Creatine Kinase (Cpk) (05/13/17 04:47) Thyroid Stimulating Hormone (05/13/17 04:47) Sodium Chlor 0.9% 1000 Ml Inj (Ns 1000 M (05/13/17 04:47) Drug Screen, Random Urine (05/13/17 04:47) Alcohol (Ethanol) (05/13/17 04:47) Tylenol (Acetaminophen) (05/13/17 04:47) Salicylates (Aspirin) (05/13/17 04:47) Ecg Monitoring (05/13/17 04:47) Psych Screen (05/13/17 04:47) ^ Sitter (05/13/17 04:47) Restraints Violent (05/13/17 04:47) Haloperidol Inj (Haldol Inj) (05/13/17 05:02) Haloperidol Inj (Haldol Inj) (05/13/17 05:15) Lorazepam Inj (Ativan Inj) (05/13/17 05:15) Potassium Chloride (Kcl) (05/13/17 05:45) Potassium Chloride (Kcl) (05/13/17 13:45) Labs Laboratory Tests Test 05/13/17 04:45 White Blood Count 9.2 TH/MM3 Red Blood Count 5.19 MIL/MM3 Hemoglobin 14.4 GM/DL Hematocrit 43.6 % Mean Corpuscular Volume 84.0 FL Mean Corpuscular Hemoglobin 27.8 PG Mean Corpuscular Hemoglobin Concent 33.1 % Red Cell Distribution Width 13.1 % Platelet Count 340 TH/MM3 Mean Platelet Volume 7.5 FL Neutrophils (%) (Auto) 75.6 % Lymphocytes (%) (Auto) 15.7 % Monocytes (%) (Auto) 8.0 % Eosinophils (%) (Auto) 0.3 % Basophils (%) (Auto) 0.4 % Neutrophils # (Auto) 6.9 TH/MM3 Lymphocytes # (Auto) 1.4 TH/MM3 Monocytes # (Auto) 0.7 TH/MM3 Eosinophils # (Auto) 0.0 TH/MM3 Basophils # (Auto) 0.0 TH/MM3 CBC Comment DIFF FINAL Differential Comment Blood Urea Nitrogen 14 MG/DL Creatinine 1.06 MG/DL Random Glucose 114 MG/DL Total Protein 8.3 GM/DL Albumin 4.5 GM/DL Calcium Level 9.3 MG/DL Alkaline Phosphatase 63 U/L Aspartate Amino Transf (AST/SGOT) 16 U/L Alanine Aminotransferase (ALT/SGPT) 20 U/L Total Bilirubin 1.1 MG/DL Sodium Level 140 MEQ/L Potassium Level 3.1 MEQ/L Chloride Level 102 MEQ/L Carbon Dioxide Level 29.4 MEQ/L Anion Gap 9 MEQ/L Estimat Glomerular Filtration Rate 77 ML/MIN Total Creatine Kinase 242 U/L Thyroid Stimulating Hormone 3rd Gen 1.790 uIU/ML Salicylates Level LESS THAN 1.7 MG/DL Acetaminophen Level LESS THAN 2.0 MCG/ML Ethyl Alcohol Level LESS THAN 3 MG/DL MDM Medical Decision Making Medical Screen Exam Complete: Yes Emergency Medical Condition: Yes Medical Record Reviewed: Yes Differential Diagnosis Sympathomimetic toxidrome versus substance induced mood disorder versus acute psychosis versus delirium versus encephalopathy versus schizophrenia versus schizoaffective disorder Narrative Course 41-year-old male presents for evaluation of bizarre behavior, auditory and visual hallucinations. He has a history of sympathomimetic drug abuse. On initial examination is combative, agitated, somewhat diaphoretic as well as tachycardic. Most likely etiology is sympathomimetic drug abuse. 2 mg Ativan, 5 mg Haldol administered for sedation. Basic lab work, 12-lead EKG were ordered. The patient will be placed on ECG monitoring and pulse oximetry. A sitter has been ordered. IV fluids has been ordered. The patient will be placed under Barker act for further psychiatric evaluation for psychosis, hallucinations. The patient's lab work is been reviewed. Potassium is 3.1. A 40 mEq oral doses been ordered for now as well as a additional 40 mEq dose scheduled for 8 hours from now. The patient is medically cleared for psychiatric disposition. Procedures EKG Prior to Arrival: Yes Diagnosis Primary Impression: Acute psychosis Additional Impressions: Substance-induced psychotic disorder with delusions Hypokalemia Scripts No Active Prescriptions or Reported Meds Perez Lara May 13, 2017 04:57
[2017-05-13] MEDS ORDERED: LORazepam 2 MG/ML VIAL IM ONE (05:00)
[2017-05-13] MEDS ORDERED: HALOPERIDOL LACTATE 5 MG/ML AMP ONE (05:02)
[2017-05-13 05:10] LABS: AUTOMATED NEUTROPHIL # 6.9 TH/MM3 (1.8-7.7); BASOPHIL % 0.4 % (0.0-2.0); EOSINOPHIL % 0.3 % (0.0-4.0); HEMATOCRIT 43.6 % (39.0-51.0); HEMO FLAGS DIFF FINAL; LYMPH % 15.7 % (9.0-44.0); LYMPHOCYTE # 1.4 TH/MM3 (1.0-4.8); MEAN CORPUSCULAR HEMOGLOBIN 27.8 PG (27.0-34.0); MEAN CORPUSCULAR HGB CONC 33.1 % (32.0-36.0); NEUT % 75.6 % (16.0-70.0); PLATELET COUNT 340 TH/MM3 (150-450); RED BLOOD COUNT 5.19 MIL/MM3 (4.50-5.90); RED CELL DISTRIBUTION WIDTH 13.1 % (11.6-17.2); WHITE BLOOD COUNT 9.2 TH/MM3 (4.0-11.0)
[2017-05-13] MEDS ORDERED: HALOPERIDOL LACTATE 5 MG/ML AMP IM ONE (05:15)
[2017-05-13] MEDS ORDERED: LORazepam 2 MG/ML VIAL IV PUSH ONE (05:15)
[2017-05-13 05:21] LABS: ALT (GPT) 20 U/L (12-78); ANION GAP 9 MEQ/L (5-15); AST (GOT) 16 U/L (15-37); BICARBONATE 29.4 MEQ/L (21.0-32.0); BLOOD UREA NITROGEN 14 MG/DL (7-18); CHLORIDE 102 MEQ/L (98-107); GLOMERULAR FILTRATION RATE 77 ML/MIN (>89); POTASSIUM 3.1 MEQ/L (3.5-5.1); SODIUM (NA) 140 MEQ/L (136-145)
[2017-05-13 05:30] LABS: ALCOHOL LESS THAN 3 MG/DL (0-5)
[2017-05-13 05:41] LABS: ALKALINE PHOSPHATASE 63 U/L (45-117); CREATINE KINASE 242 U/L (39-308); TOTAL BILIRUBIN ADULT 1.1 MG/DL (0.2-1.0)
[2017-05-13 05:45] LABS: ACETAMINOPHEN LESS THAN 2.0 MCG/ML (10.0-30.0)
[2017-05-13] MEDS ORDERED: POTASSIUM CHLORIDE 20 MEQ CONTROLLED RELEASE TAB PO ONE ×2 (05:45→13:45)
--- NOTE | 2017-05-13 17:58 | EKG ---
Date Performed: 05/13/2017 Time Performed: 05:06:57 PTAGE: 41 years EKG: Sinus rhythm POSSIBLE LEFT ATRIAL ENLARGEMENT INCOMPLETE RIGHT BUNDLE BRANCH BLOCK BORDERLINE ECG Compared to maggie or tracing no significant change PREVIOUS TRACING : 05/23/2016 02.16 DOCTOR: Jong Sosa Interpretating Date/Time 05/13/2017 17:57:09
[2017-05-14 02:00] VITALS: BP 109/55; PULSE 73; RESP 17; O2SAT 99
[2017-05-14 06:54] VITALS: BP 101/55; PULSE 61; RESP 18
--- NOTE | 2017-05-14 09:34 | PD ---
Physical Exam Date Seen by Provider: May 14, 2017 Time Seen by Provider: 09:32 Narrative 41-year-old male previously brought in under the Barker act and Marchman act, with obvious substance abuse symptoms is now cleared by psychiatric staff. Medically the patient received 2 doses of potassium for a low potassium noted on his medical blood work. He is currently medically stable and felt to be safe for discharge at this time. Please see discharge instructions from psychiatric staff. Data Data Last Documented VS Vital Signs Date Time Temp Pulse Resp B/P (MAP) Pulse Ox O2 Delivery O2 Flow Rate FiO2 05/14/17 06:54 61 18 101/55 (70) Room Air 05/14/17 02:00 99 05/13/17 05:12 98.9 Orders Orders Lorazepam Inj (Ativan Inj) (05/13/17 05:00) Electrocardiogram (05/13/17 04:47) Complete Blood Count With Diff (05/13/17 04:47) Comprehensive Metabolic Panel (05/13/17 04:47) Creatine Kinase (Cpk) (05/13/17 04:47) Thyroid Stimulating Hormone (05/13/17 04:47) Sodium Chlor 0.9% 1000 Ml Inj (Ns 1000 M (05/13/17 04:47) Drug Screen, Random Urine (05/13/17 04:47) Alcohol (Ethanol) (05/13/17 04:47) Tylenol (Acetaminophen) (05/13/17 04:47) Salicylates (Aspirin) (05/13/17 04:47) Ecg Monitoring (05/13/17 04:47) Psych Screen (05/13/17 04:47) ^ Sitter (05/13/17 04:47) Restraints Violent (05/13/17 04:47) Haloperidol Inj (Haldol Inj) (05/13/17 05:02) Haloperidol Inj (Haldol Inj) (05/13/17 05:15) Lorazepam Inj (Ativan Inj) (05/13/17 05:15) Potassium Chloride (Kcl) (05/13/17 05:45) Potassium Chloride (Kcl) (05/13/17 13:45) Diet Regular Basic (05/13/17 Lunch) Diet Regular Basic (05/13/17 Dinner) Diet Regular Basic (05/14/17 Breakfast) Diet Regular Basic (05/14/17 Lunch) Labs Laboratory Tests Test 05/13/17 04:45 05/13/17 12:20 White Blood Count 9.2 TH/MM3 Red Blood Count 5.19 MIL/MM3 Hemoglobin 14.4 GM/DL Hematocrit 43.6 % Mean Corpuscular Volume 84.0 FL Mean Corpuscular Hemoglobin 27.8 PG Mean Corpuscular Hemoglobin Concent 33.1 % Red Cell Distribution Width 13.1 % Platelet Count 340 TH/MM3 Mean Platelet Volume 7.5 FL Neutrophils (%) (Auto) 75.6 % Lymphocytes (%) (Auto) 15.7 % Monocytes (%) (Auto) 8.0 % Eosinophils (%) (Auto) 0.3 % Basophils (%) (Auto) 0.4 % Neutrophils # (Auto) 6.9 TH/MM3 Lymphocytes # (Auto) 1.4 TH/MM3 Monocytes # (Auto) 0.7 TH/MM3 Eosinophils # (Auto) 0.0 TH/MM3 Basophils # (Auto) 0.0 TH/MM3 CBC Comment DIFF FINAL Differential Comment Blood Urea Nitrogen 14 MG/DL Creatinine 1.06 MG/DL Random Glucose 114 MG/DL Total Protein 8.3 GM/DL Albumin 4.5 GM/DL Calcium Level 9.3 MG/DL Alkaline Phosphatase 63 U/L Aspartate Amino Transf (AST/SGOT) 16 U/L Alanine Aminotransferase (ALT/SGPT) 20 U/L Total Bilirubin 1.1 MG/DL Sodium Level 140 MEQ/L Potassium Level 3.1 MEQ/L Chloride Level 102 MEQ/L Carbon Dioxide Level 29.4 MEQ/L Anion Gap 9 MEQ/L Estimat Glomerular Filtration Rate 77 ML/MIN Total Creatine Kinase 242 U/L Thyroid Stimulating Hormone 3rd Gen 1.790 uIU/ML Salicylates Level LESS THAN 1.7 MG/DL Acetaminophen Level LESS THAN 2.0 MCG/ML Ethyl Alcohol Level LESS THAN 3 MG/DL Urine Opiates Screen NEG Urine Barbiturates Screen NEG Urine Amphetamines Screen POS Urine Benzodiazepines Screen NEG Urine Cocaine Screen NEG Urine Cannabinoids Screen NEG MDM Medical Record Reviewed: Yes Supervised Visit with HOLLY: Yes Narrative Course 41-year-old male previously brought in under the Barker act and Marchman act, with obvious substance abuse symptoms is now cleared by psychiatric staff. Medically the patient received 2 doses of potassium for a low potassium noted on his medical blood work. He is currently medically stable and felt to be safe for discharge at this time. Please see discharge instructions from psychiatric staff. Diagnosis Primary Impression: Acute psychosis Additional Impressions: Substance-induced psychotic disorder with delusions Hypokalemia Patient Instructions: General Instructions Scripts No Active Prescriptions or Reported Meds Disposition: 01 DISCHARGE HOME Condition: Stable Nicholas Dawson May 14, 2017 09:33
--- NOTE | 2017-05-14 09:46 | PD ---
History of Present Illness Chief Complaint: Psychiatric Symptoms Time Seen by Provider: 09:15 Travel History International Travel<30 Days: No Contact w/Intl Traveler<30days: No Known affected area: No Legal Status Legal Status: Barker Act Barker Act Signed By: Patient accompanied by 2x BA's & a Jeffry's Act Barker Act Comment: Patient accompanied by 2x BA's & a Jeffry's Act History of Present Illness: History of Present Illness HPI This patient is a 41 year old male with history of substance-induced psychotic disorders, acute psychosis, methamphetamine, and cocaine abuse who presents to ED under a Ba initiated by [facility] as well as a second BA initiated by provider at [facility]. As per the documentation it is alleged that he was seeing ghosts and that they had weapons and that it was going to be a blood bath. He was talking that people were after him and talking to things that were not there. Patient was initially combative, agitated. EMR is reviewed. Toxicology is positive for amphetamines. Nurse reports that patient stated he had been up for a few days. gila has been monitored in J pod and he has been sleeping with no behavioral concerns. This morning he is asleep but awakens easily. He is calm, speech is clear and logical. He denies any hallucinations, denies any paranoid thoughts and denies any suicidal or homicidal ideation. He does not appear internally stimulated. PFSH Past Medical History Diminished Hearing: No Psychiatric History Psychiatric History Hx Psychiatric Treatment: Patient denies having any current psychiatric History of Inpatient Treatment: No Guns or firearms in home: No Social History Single male. Hx Alcohol Use: No Hx Tobacco Use: No Hx Substance Use: No (DENIES) Substance Use Type: Amphetamines-Stimulants, Other Other Substances Used: pt stated i do whatever i want to do occasionaly, but not often Hx of Substance Use Treatment: No Family Psychiatric History None reported Allergies-Medications (Allergen,Severity, Reaction): Coded Allergies: No Known Allergies (Verified , 05/13/17) Reported Meds & Prescriptions Reported Meds & Active Scripts Active No Active Prescriptions or Reported Medications Review of Systems Except as stated in HPI: all other systems reviewed are Neg Exam Alert: Yes [place]: Person (ox4) Mood: Calm Affect: Appropriate Speech: Clear, Logical Eye Contact: Indirect Memory Intact: Comment (no impairmetn) Hallucinations: Other (deneis any) Delusions: No Suicidal: Ideation (deneis any) Homicidal: Ideation (deneis any) Insight/Judgement Poor. Not impaired. MDM Medical Decision Making Medical Record Reviewed: Yes Assessment/Plan This patient is a 41 year old male with history of substance-induced psychotic disorders, acute psychosis, methamphetamine, and cocaine abuse who presents to ED under a Ba initiated by [facility] as well as a second BA initiated by provider at [facility]. Patient aloud to sleep while monitored and presented no behavioral concerns, no psychosis and no suicidality. At this time the patient does not present any unstable mental illness as defined under the Barker Act. He is at a precontemplative stage fin terms of his i substance use. he will be provided with resources in the community such as [facility]. The patient is psychiatrically clear fro discharge from ED. BA x 2 lifted. Orders Orders Diet Regular Basic (05/13/17 Lunch) Diet Regular Basic (05/13/17 Dinner) Diet Regular Basic (05/14/17 Breakfast) Diet Regular Basic (05/14/17 Lunch) Results Vital Signs Date Time Temp Pulse Resp B/P (MAP) Pulse Ox O2 Delivery O2 Flow Rate FiO2 05/14/17 06:54 61 18 101/55 (70) Room Air 05/14/17 02:00 73 17 109/55 (73) 99 Room Air 05/13/17 22:02 66 18 104/56 (72) 94 Room Air 05/13/17 18:33 84 18 120/68 (85) 100 Room Air 05/13/17 16:20 70 18 117/62 (80) 97 Room Air 05/13/17 11:39 109 16 117/77 (90) 98 Room Air 05/13/17 09:35 76 16 103/61 (75) 97 Room Air Laboratory Tests Test 05/13/17 12:20 Urine Opiates Screen NEG Urine Barbiturates Screen NEG Urine Amphetamines Screen POS Urine Benzodiazepines Screen NEG Urine Cocaine Screen NEG Urine Cannabinoids Screen NEG Diagnosis Primary Impression: Amphetamine-induced psychotic disorder Psychiatrically Cleared: Yes Prescriptions No Active Prescriptions or Reported Meds Disposition: DISCHARGE HOME Condition: Stable Problem Qualifiers Primary Impression: Amphetamine-induced psychotic disorder Qualified Codes: F15.951 - Other stimulant use, unspecified with stimulant- induced psychotic disorder with hallucinations Kindra Vinson May 14, 2017 09:46
[2017-05-14 10:21] VITALS: BP 107/74; PULSE 68; RESP 16; O2SAT 96
== END 2017-05-14 10:49 | disposition home or self-care (01) ==
LOC: NEPD 04:28 → NEPJ 05-14 10:49
DX: F15.159 Other stimulant abuse with stimulant-induced psychotic disorder, unspecified (principal); F14.10 Cocaine abuse, uncomplicated; I45.10 Unspecified right bundle-branch block; E87.6 Hypokalemia; R00.0 Tachycardia, unspecified
CPT/HCPCS: 80053; 80307; 82550; 84443; 85025; 93005; 96361; 96372; 96374; 99285; J1630; J2060; J7030

== ENCOUNTER 2017-05-15 23:17 | Emergency (ER) | payer MEDICAID ==
[~2017-05-15] VITALS: Ht 177.8 cm; Wt 62.0 kg
[2017-05-15 23:29] VITALS: BP 156/89; PULSE 111; RESP 18; TEMP 98.2; O2SAT 97
== END 2017-05-15 23:55 | disposition left against medical advice (07) ==
LOC: PHED 23:17
DX: F41.9 Anxiety disorder, unspecified (principal); R44.3 Hallucinations, unspecified; Z53.21 Procedure and treatment not carried out due to patient leaving prior to being seen by health care provider
CPT/HCPCS: 99281

== ENCOUNTER 2017-05-16 00:19 | Emergency (ER) | payer MEDICAID ==
[~2017-05-16] VITALS: Ht 177.8 cm; Wt 65.0 kg
[2017-05-16 00:22] VITALS: BP 140/89; RESP 16; TEMP 98.8; O2SAT 98
--- NOTE | 2017-05-16 00:51 | PD ---
HPI Chief Complaint: Psychiatric Symptoms Time Seen by Provider: 00:38 Travel History International Travel<30 days: No Contact w/Intl Traveler<30days: No Traveled to known affect area: No History of Present Illness HPI 41-year-old white male presents to emergency department requesting a evaluation to ensure that he is okay. He states that he sees ghosts chasing him. He states that he feels that he is been shot in the head. The patient states that he would like to have some lab tests done to ensure that he is okay. He denies any suicidal or homicidal ideation. This is a patient who is been seen in the ER and evaluated by to psych in the past. He's had a history of substance induced psychosis. The patient has no history of suicide in past. He denies any toxic ingestions. He denies any specific medical complaints. [facility] Past Medical History Narrative Medical Anxiety, substance abuse Anxiety: Yes Diminished Hearing: No Tetanus Vaccination: < 5 Years Past Surgical History Surgical History: No Previous Surgery Social History Alcohol Use: No Tobacco Use: No Substance Use: Yes Allergies-Medications (Allergen,Severity, Reaction): Coded Allergies: No Known Allergies (Verified , 05/15/17) Reported Meds & Prescriptions Reported Meds & Active Scripts Active No Active Prescriptions or Reported Medications Review of Systems Except as stated in HPI: all other systems reviewed are Neg Physical Exam Narrative GENERAL: Well-nourished, well-developed patient. SKIN: Warm and dry. HEAD: Normocephalic and atraumatic. EYES: No scleral icterus. No injection or drainage. ENT: No nasal drainage noted. Mucous membranes pink. Airway patent. NECK: Supple, trachea midline. Moves head freely without obvious discomfort. CARDIOVASCULAR: Regular rate and rhythm without murmurs, gallops, or rubs. RESPIRATORY: Breath sounds equal bilaterally. No accessory muscle use. GASTROINTESTINAL: Abdomen soft, non-tender, nondistended. EXTREMITIES: No cyanosis or edema. BACK: Nontender without obvious deformity. No CVA tenderness. NEURO: Patient is alert and oriented. no sensorimotor deficits. Nonfocal. Normal speech. PSYCH: Patient is acutely delusional. He states that he's seeing ghosts chasing him. Data Data Last Documented VS Vital Signs Date Time Temp Pulse Resp B/P (MAP) Pulse Ox O2 Delivery O2 Flow Rate FiO2 05/16/17 00:22 98.8 16 140/89 (106) 98 Room Air MDM Medical Decision Making Medical Screen Exam Complete: Yes Emergency Medical Condition: Yes Medical Record Reviewed: Yes Differential Diagnosis MDM: High Differential diagnoses: Schizophrenia, schizoaffective disorder, bipolar, anxiety, depression, adjustment reaction, mood disorder NOS, psychosis NOS, substance induced mood disorder, iinfection,electrolyte abnormality, malingering. Narrative Course This is a 41-year-old white male who presents on a voluntary basis for a medical evaluation. He is delusional but he is not a threat to himself or others. He is accompanied by his small dog who is with him. Dog does not appear to be malnourished or inappropriately cared for. The patient does not meet criteria for Barker act. There is no additional testing that needs to be done. The patient does have a history of substance abuse in the past along with substance induced psychosis. The patient is been medically cleared. Brief psychotic disorder, substance abuse Diagnosis Primary Impression: Brief psychotic disorder Additional Impression: Substance abuse Patient Instructions: General Instructions Additional Instructions: Rest. Follow-up with [facility] for evaluation. Return to the ER for emergencies. Med/Other Pt SpecificInfo: No Meds Exist/No RX given Scripts No Active Prescriptions or Reported Meds Disposition: 01 DISCHARGE HOME Condition: Stable Casey Alicea May 16, 2017 00:51
== END 2017-05-16 01:10 | disposition home or self-care (01) ==
LOC: NEPD 00:19
DX: F23 Brief psychotic disorder (principal); F19.10 Other psychoactive substance abuse, uncomplicated; F41.9 Anxiety disorder, unspecified
CPT/HCPCS: 99282

== ENCOUNTER 2017-09-23 18:41 | Emergency (ER) | payer MEDICAID, OTHER ==
[~2017-09-23] VITALS: Ht 165.1 cm; Wt 70.0 kg
[2017-09-23 19:26] VITALS: BP 157/87; PULSE 125; RESP 19; TEMP 98.9; O2SAT 97
[2017-09-23] MEDS ORDERED: SODIUM CHLOR 0.9% 1000 ML INJ 1,000 ML IV ONE ×2 (19:45→21:30)
--- NOTE | 2017-09-23 19:49 | PD ---
HPI Chief Complaint: Psychiatric Symptoms Time Seen by Provider: 19:29 Travel History International Travel<30 days: No Contact w/Intl Traveler<30days: No Traveled to known affect area: No History of Present Illness HPI 41-year-old male brought in by PD under Barker act. According to the Barker act the patient was running around his neighborhood banging on doors and running in front of vehicles. According to the patient's father he is currently high unmet. His father reports that he has an issue with narcotics which brings about this behavior and he believes that he will end up hurting himself or someone else. Barker act states that the patient seems very paranoid and stated that there are ghosts chasing him and he was hiding under cars and behind chairs. On my assessment the patient has very poor eye contact and does not answer all my questions. He denies using any illicit drugs. He is calm. PFSH Past Medical History Medical History: Denies Significant Hx Anxiety: Yes Diminished Hearing: No Immunizations Current: Yes Social History Alcohol Use: No Tobacco Use: Yes Substance Use: Yes (METH) Allergies-Medications (Allergen,Severity, Reaction): Coded Allergies: No Known Allergies (Verified , 05/15/17) Reported Meds & Prescriptions Reported Meds & Active Scripts Active No Active Prescriptions or Reported Medications Review of Systems ROS Limitations: Intoxication Physical Exam Narrative GENERAL: Well-developed, well-nourished, calm, poor eye contact, no apparent distress. SKIN: Focused skin assessment warm/dry. HEAD: Atraumatic. Normocephalic. EYES: Pupils equal and round. No scleral icterus. No injection or drainage. ENT: No nasal bleeding or discharge. Mucous membranes pink and moist. NECK: Trachea midline. No JVD. CARDIOVASCULAR: Tachycardic, rate 120s, regular. RESPIRATORY: No accessory muscle use. Clear to auscultation. Breath sounds equal bilaterally. GASTROINTESTINAL: Abdomen soft, non-tender, nondistended. MUSCULOSKELETAL: No obvious deformities. No clubbing. No cyanosis. No edema. NEUROLOGICAL: Awake and alert. No obvious cranial nerve deficits. Motor grossly within normal limits. Normal speech. PSYCHIATRIC: Poor eye contact. Flat affect. Data Data Last Documented VS Vital Signs Date Time Temp Pulse Resp B/P (MAP) Pulse Ox O2 Delivery O2 Flow Rate FiO2 09/24/17 00:15 115 20 150/100 (117) 96 Room Air 09/23/17 22:57 98.6 Orders Orders Complete Blood Count With Diff (09/23/17 19:33) Comprehensive Metabolic Panel (09/23/17 19:33) Psych Screen (09/23/17 19:33) Drug Screen, Random Urine (09/23/17 19:33) Alcohol (Ethanol) (09/23/17 19:33) Salicylates (Aspirin) (09/23/17 19:33) Tylenol (Acetaminophen) (09/23/17 19:33) Sodium Chlor 0.9% 1000 Ml Inj (Ns 1000 M (09/23/17 19:45) Lorazepam Inj (Ativan Inj) (09/23/17 20:00) Lorazepam Inj (Ativan Inj) (09/23/17 19:57) Sodium Chlor 0.9% 1000 Ml Inj (Ns 1000 M (09/23/17 21:30) Lorazepam Inj (Ativan Inj) (09/23/17 22:45) Creatine Kinase (Cpk) (09/24/17 00:14) CKMB (09/23/17 19:40) CKMB% (09/23/17 19:40) Olanzapine Inj (Zyprexa Inj) (09/24/17 01:00) Lorazepam Inj (Ativan Inj) (09/24/17 01:00) Labs Laboratory Tests Test 09/23/17 19:40 09/23/17 23:00 White Blood Count 14.5 TH/MM3 Red Blood Count 5.50 MIL/MM3 Hemoglobin 15.4 GM/DL Hematocrit 47.0 % Mean Corpuscular Volume 85.4 FL Mean Corpuscular Hemoglobin 27.9 PG Mean Corpuscular Hemoglobin Concent 32.7 % Red Cell Distribution Width 13.8 % Platelet Count 341 TH/MM3 Mean Platelet Volume 8.2 FL Neutrophils (%) (Auto) 84.9 % Lymphocytes (%) (Auto) 6.6 % Monocytes (%) (Auto) 8.3 % Eosinophils (%) (Auto) 0.0 % Basophils (%) (Auto) 0.2 % Neutrophils # (Auto) 12.3 TH/MM3 Lymphocytes # (Auto) 1.0 TH/MM3 Monocytes # (Auto) 1.2 TH/MM3 Eosinophils # (Auto) 0.0 TH/MM3 Basophils # (Auto) 0.0 TH/MM3 CBC Comment DIFF FINAL Differential Comment Blood Urea Nitrogen 17 MG/DL Creatinine 1.30 MG/DL Random Glucose 121 MG/DL Total Protein 9.1 GM/DL Albumin 4.8 GM/DL Calcium Level 9.5 MG/DL Alkaline Phosphatase 81 U/L Aspartate Amino Transf (AST/SGOT) 47 U/L Alanine Aminotransferase (ALT/SGPT) 42 U/L Total Bilirubin 0.6 MG/DL Sodium Level 142 MEQ/L Potassium Level 3.7 MEQ/L Chloride Level 103 MEQ/L Carbon Dioxide Level 29.3 MEQ/L Anion Gap 10 MEQ/L Estimat Glomerular Filtration Rate 61 ML/MIN Total Creatine Kinase 860 U/L Salicylates Level LESS THAN 1.7 MG/DL Acetaminophen Level LESS THAN 2.0 MCG/ML Ethyl Alcohol Level LESS THAN 3 MG/DL Urine Opiates Screen NEG Urine Barbiturates Screen NEG Urine Amphetamines Screen POS Urine Benzodiazepines Screen NEG Urine Cocaine Screen NEG Urine Cannabinoids Screen NEG MDM Medical Decision Making Medical Screen Exam Complete: Yes Emergency Medical Condition: Yes Differential Diagnosis Substance-induced mood disorder, acute psychosis. Narrative Course Patient became agitated shortly after arrival to the emergency department and was a danger to himself and to staff, so he was placed in restraints and given Ativan for sedation. Initial vital signs show heart rate 125, blood pressure 157/87, pulse ox 97% on room air, oral temp of 98.9F. CBC: WBC 14.5, hemoglobin 15.4, hematocrit 47, platelets 341, neutrophils 85%. CMP is essentially unremarkable. Tylenol, alcohol, and salicylate levels are negative. Total CK is 860. The patient was provided 3 L of normal saline IV. Patient's slight leukocytosis is nonspecific. He does remain tachycardic with a heart rate of 110-115 bpm, sinus, and this is most likely secondary to amphetamine use. When talking with him he is awake and alert, however he tells me that he feels as though someone is shooting at him with a machine gun and appears to be having auditory and visual hallucinations. Past toxicology screens have shown amphetamines. He has not yet provided a urine sample for us today. At this point he is medically cleared for psychiatric evaluation and disposition by them. Urine drug screen is positive for amphetamines. 12:54 AM: An attempt was made to remove the patient's physical restraints, and during removal of the patient became increasingly agitated and physically aggressive towards staff. He remains both a danger to himself and to staff. Restraints were reapplied, and the patient was given Ativan and Zyprexa for chemical sedation. Diagnosis Primary Impression: Acute psychosis Additional Impression: Amphetamine abuse Scripts No Active Prescriptions or Reported Meds Ricco Cohn MD Sep 23, 2017 19:49
[2017-09-23] MEDS ORDERED: LORazepam 2 MG/ML VIAL ONE (19:57)
[2017-09-23] MEDS ORDERED: LORazepam 2 MG/ML VIAL IV PUSH ONE ×2 (20:00→22:45)
[2017-09-23 21:16] LABS: AUTOMATED NEUTROPHIL # 12.3 TH/MM3 (1.8-7.7); BASOPHIL % 0.2 % (0.0-2.0); HEMOGLOBIN 15.4 GM/DL (13.0-17.0); LYMPH % 6.6 % (9.0-44.0); MEAN CELL VOLUME 85.4 FL (80.0-100.0); MEAN CORPUSCULAR HEMOGLOBIN 27.9 PG (27.0-34.0); MEAN CORPUSCULAR HGB CONC 32.7 % (32.0-36.0); MEAN PLATELET VOLUME 8.2 FL (7.0-11.0); MONO % 8.3 % (0.0-8.0); MONOCYTE # 1.2 TH/MM3 (0-0.9); NEUT % 84.9 % (16.0-70.0); PLATELET COUNT 341 TH/MM3 (150-450); RED CELL DISTRIBUTION WIDTH 13.8 % (11.6-17.2); WHITE BLOOD COUNT 14.5 TH/MM3 (4.0-11.0)
[2017-09-23 21:18] VITALS: BP 178/86; PULSE 136; RESP 20; O2SAT 95
[2017-09-23 21:44] LABS: ALBUMIN 4.8 GM/DL (3.4-5.0); ALKALINE PHOSPHATASE 81 U/L (45-117); ALT (GPT) 42 U/L (12-78); AST (GOT) 47 U/L (15-37); BICARBONATE 29.3 MEQ/L (21.0-32.0); BLOOD UREA NITROGEN 17 MG/DL (7-18); CALCIUM 9.5 MG/DL (8.5-10.1); CHLORIDE 103 MEQ/L (98-107); GLOMERULAR FILTRATION RATE 61 ML/MIN (>89); GLUCOSE,RANDOM 121 MG/DL (74-106); SODIUM (NA) 142 MEQ/L (136-145); TOTAL BILIRUBIN ADULT 0.6 MG/DL (0.2-1.0); TOTAL PROTEIN 9.1 GM/DL (6.4-8.2)
[2017-09-23 21:46] LABS: ACETAMINOPHEN LESS THAN 2.0 MCG/ML (10.0-30.0)
[2017-09-23 22:57] VITALS: BP 164/87; PULSE 126; RESP 20; TEMP 98.6; O2SAT 96
[2017-09-24] VITALS (7 sets, daily range): BP systolic 119–150; BP diastolic 60–100; PULSE 69–121; RESP 16–20; O2SAT 96–100
[2017-09-24] MEDS ORDERED: LORazepam 2 MG/ML VIAL IM ONE (01:00)
[2017-09-24] MEDS ORDERED: OLANZapine IM 10 MG VIAL IM ONE (01:00)
--- NOTE | 2017-09-24 13:30 | PD ---
Physical Exam Time Seen by Provider: 13:30 Data Data Last Documented VS Vital Signs Date Time Temp Pulse Resp B/P (MAP) Pulse Ox O2 Delivery O2 Flow Rate FiO2 09/24/17 12:00 101 20 123/85 (98) 100 Room Air 09/23/17 22:57 98.6 Orders Orders Complete Blood Count With Diff (09/23/17 19:33) Comprehensive Metabolic Panel (09/23/17 19:33) Psych Screen (09/23/17 19:33) Drug Screen, Random Urine (09/23/17 19:33) Alcohol (Ethanol) (09/23/17 19:33) Salicylates (Aspirin) (09/23/17 19:33) Tylenol (Acetaminophen) (09/23/17 19:33) Sodium Chlor 0.9% 1000 Ml Inj (Ns 1000 M (09/23/17 19:45) Lorazepam Inj (Ativan Inj) (09/23/17 20:00) Lorazepam Inj (Ativan Inj) (09/23/17 19:57) Sodium Chlor 0.9% 1000 Ml Inj (Ns 1000 M (09/23/17 21:30) Lorazepam Inj (Ativan Inj) (09/23/17 22:45) Creatine Kinase (Cpk) (09/24/17 00:14) CKMB (09/23/17 19:40) CKMB% (09/23/17 19:40) Olanzapine Inj (Zyprexa Inj) (09/24/17 01:00) Lorazepam Inj (Ativan Inj) (09/24/17 01:00) Diet Regular Basic (09/24/17 Breakfast) Ed Discharge Order (09/24/17 13:29) Labs Laboratory Tests Test 09/23/17 19:40 09/23/17 23:00 White Blood Count 14.5 TH/MM3 Red Blood Count 5.50 MIL/MM3 Hemoglobin 15.4 GM/DL Hematocrit 47.0 % Mean Corpuscular Volume 85.4 FL Mean Corpuscular Hemoglobin 27.9 PG Mean Corpuscular Hemoglobin Concent 32.7 % Red Cell Distribution Width 13.8 % Platelet Count 341 TH/MM3 Mean Platelet Volume 8.2 FL Neutrophils (%) (Auto) 84.9 % Lymphocytes (%) (Auto) 6.6 % Monocytes (%) (Auto) 8.3 % Eosinophils (%) (Auto) 0.0 % Basophils (%) (Auto) 0.2 % Neutrophils # (Auto) 12.3 TH/MM3 Lymphocytes # (Auto) 1.0 TH/MM3 Monocytes # (Auto) 1.2 TH/MM3 Eosinophils # (Auto) 0.0 TH/MM3 Basophils # (Auto) 0.0 TH/MM3 CBC Comment DIFF FINAL Differential Comment Blood Urea Nitrogen 17 MG/DL Creatinine 1.30 MG/DL Random Glucose 121 MG/DL Total Protein 9.1 GM/DL Albumin 4.8 GM/DL Calcium Level 9.5 MG/DL Alkaline Phosphatase 81 U/L Aspartate Amino Transf (AST/SGOT) 47 U/L Alanine Aminotransferase (ALT/SGPT) 42 U/L Total Bilirubin 0.6 MG/DL Sodium Level 142 MEQ/L Potassium Level 3.7 MEQ/L Chloride Level 103 MEQ/L Carbon Dioxide Level 29.3 MEQ/L Anion Gap 10 MEQ/L Estimat Glomerular Filtration Rate 61 ML/MIN Total Creatine Kinase 860 U/L Creatine Kinase MB 9.9 NG/ML Creatine Kinase MB % 1.2 % Salicylates Level LESS THAN 1.7 MG/DL Acetaminophen Level LESS THAN 2.0 MCG/ML Ethyl Alcohol Level LESS THAN 3 MG/DL Urine Opiates Screen NEG Urine Barbiturates Screen NEG Urine Amphetamines Screen POS Urine Benzodiazepines Screen NEG Urine Cocaine Screen NEG Urine Cannabinoids Screen NEG MDM Medical Record Reviewed: Yes Supervised Visit with HOLLY: No Narrative Course See previous providers notes. This patient's Barker act has been lifted by psychiatry and he has been dealing clear by psychiatry. He has no medical issues that would warrant additional hospitalization. He is stable for discharge. Diagnosis Primary Impression: Acute psychosis Additional Impression: Amphetamine abuse Scripts Unable to Obtain Active Prescriptions or Reported Meds Perez Lara Sep 24, 2017 13:30
--- NOTE | 2017-09-24 13:50 | PD ---
History of Present Illness Chief Complaint: Psychiatric Symptoms Time Seen by Provider: 13:30 Travel History International Travel<30 Days: No Contact w/Intl Traveler<30days: No Known affected area: No Legal Status Legal Status: Barker Act History of Present Illness: 41-year-old male brought in under a Barker act for allegedly running around his neighborhood, banging on doors, running in front of vehicles, paranoid and stating ghosts were chasing him. He was reportedly hiding under cars and behind chairs. Patient is noted to be positive for amphetamines. Patient's father reported he acts like this when he is using narcotics. Patient admits to using narcotics "sometimes" and reports his behavior last night could have been related to his use. At this time he is not intoxicated and demonstrates no psychotic thinking. He denies any suicidal or homicidal ideation, plan or intent. His cognition is intact. He was offered transportation and a referral to [facility] but he declined. He states he has been there and has no wish to go back. He actually wants to continue using narcotics as he sees fit. He states his father will allow him to come home. He is verbally shmuel for safety and he is competent to do so. [facility] Past Medical History Medical History: Denies Significant Hx Anxiety: Yes Diminished Hearing: No Immunizations Current: Yes Psychiatric History Psychiatric History Hx Psychiatric Treatment: Patient denies having any current psychiatric History of Inpatient Treatment: No Guns or firearms in home: No Social History Hx Alcohol Use: No Hx Tobacco Use: Yes Hx Substance Use: Yes (METH) Substance Use Type: Amphetamines-Stimulants, Other Other Substances Used: pt stated i do whatever i want to do occasionaly, but not often Hx of Substance Use Treatment: No Allergies-Medications (Allergen,Severity, Reaction): Coded Allergies: No Known Allergies (Verified , 05/15/17) Reported Meds & Prescriptions Reported Meds & Active Scripts Active Active Prescriptions or Reported Medications Unobtainable Review of Systems Except as stated in HPI: all other systems reviewed are Neg Mental Status Examination Appearance: Dirty, Disheveled Consciousness: Alert Orientation: x4 Motor Activity: Normal gait Speech: Unremarkable Language: Adequate Fund of Knowledge: Adequate Attention and Concentration: Adequate Memory: Unremarkable Mood: Appropriate Affect: Appropriate Thought Process & Associations: Intact Thought Content: Appropriate Hallucination Type: None Delusion Type: None Suicidal Ideation: No Suicidal Plan: No Suicidal Intention: No Homicidal Ideation: No Homicidal Plan: No Homicidal Intention: No Insight: Adequate Judgment: Adequate MDM Medical Decision Making Medical Record Reviewed: Yes Assessment/Plan Patient interviewed at bedside. Electronic medical record reviewed. Case discussed with Norman haley. Case also discussed with nurse, Alphonse. Patient does not meet criteria for Barker act or involuntary psychiatric hospitalization. He was offered referral and transportation to [facility] but declines. He is competent to make informed medical decisions. Orders Orders Complete Blood Count With Diff (09/23/17 19:33) Comprehensive Metabolic Panel (09/23/17 19:33) Psych Screen (09/23/17 19:33) Drug Screen, Random Urine (09/23/17 19:33) Alcohol (Ethanol) (09/23/17 19:33) Salicylates (Aspirin) (09/23/17 19:33) Tylenol (Acetaminophen) (09/23/17 19:33) Sodium Chlor 0.9% 1000 Ml Inj (Ns 1000 M (09/23/17 19:45) Lorazepam Inj (Ativan Inj) (09/23/17 20:00) Lorazepam Inj (Ativan Inj) (09/23/17 19:57) Sodium Chlor 0.9% 1000 Ml Inj (Ns 1000 M (09/23/17 21:30) Lorazepam Inj (Ativan Inj) (09/23/17 22:45) Creatine Kinase (Cpk) (09/24/17 00:14) CKMB (09/23/17 19:40) CKMB% (09/23/17 19:40) Olanzapine Inj (Zyprexa Inj) (09/24/17 01:00) Lorazepam Inj (Ativan Inj) (09/24/17 01:00) Diet Regular Basic (09/24/17 Breakfast) Ed Discharge Order (09/24/17 13:29) Results Vital Signs Date Time Temp Pulse Resp B/P (MAP) Pulse Ox O2 Delivery O2 Flow Rate FiO2 1/12/18 12:00 101 20 123/85 (98) 100 Room Air 09/24/17 06:11 80 20 119/76 (90) 100 09/24/17 05:03 71 20 120/63 (82) 100 09/24/17 03:25 69 16 120/64 (82) 98 Room Air 09/24/17 02:38 98 20 136/60 (85) 99 09/24/17 01:27 121 20 137/63 (87) 97 Room Air 09/24/17 00:15 115 20 150/100 (117) 96 Room Air 09/23/17 22:57 98.6 126 20 164/87 (112) 96 Room Air 09/23/17 21:18 136 20 178/86 (116) 95 Room Air 09/23/17 19:26 98.9 125 19 157/87 (110) 97 Laboratory Tests Test 09/23/17 19:40 09/23/17 23:00 White Blood Count 14.5 Red Blood Count 5.50 Hemoglobin 15.4 Hematocrit 47.0 Mean Corpuscular Volume 85.4 Mean Corpuscular Hemoglobin 27.9 Mean Corpuscular Hemoglobin Concent 32.7 Red Cell Distribution Width 13.8 Platelet Count 341 Mean Platelet Volume 8.2 Neutrophils (%) (Auto) 84.9 Lymphocytes (%) (Auto) 6.6 Monocytes (%) (Auto) 8.3 Eosinophils (%) (Auto) 0.0 Basophils (%) (Auto) 0.2 Neutrophils # (Auto) 12.3 Lymphocytes # (Auto) 1.0 Monocytes # (Auto) 1.2 Eosinophils # (Auto) 0.0 Basophils # (Auto) 0.0 CBC Comment DIFF FINAL Differential Comment Blood Urea Nitrogen 17 Creatinine 1.30 Random Glucose 121 Total Protein 9.1 Albumin 4.8 Calcium Level 9.5 Alkaline Phosphatase 81 Aspartate Amino Transf (AST/SGOT) 47 Alanine Aminotransferase (ALT/SGPT) 42 Total Bilirubin 0.6 Sodium Level 142 Potassium Level 3.7 Chloride Level 103 Carbon Dioxide Level 29.3 Anion Gap 10 Estimat Glomerular Filtration Rate 61 Total Creatine Kinase 860 Creatine Kinase MB 9.9 Creatine Kinase MB % 1.2 Salicylates Level LESS THAN 1.7 Acetaminophen Level LESS THAN 2.0 Ethyl Alcohol Level LESS THAN 3 Urine Opiates Screen NEG Urine Barbiturates Screen NEG Urine Amphetamines Screen POS Urine Benzodiazepines Screen NEG Urine Cocaine Screen NEG Urine Cannabinoids Screen NEG Diagnosis Primary Impression: Amphetamine abuse Prescriptions Unable to Obtain Active Prescriptions or Reported Meds Madhu Momin MD Sep 24, 2017 13:50
== END 2017-09-24 14:19 | disposition home or self-care (01) ==
LOC: NEPD 18:41
DX: F23 Brief psychotic disorder (principal); F15.10 Other stimulant abuse, uncomplicated; F41.9 Anxiety disorder, unspecified; Z72.0 Tobacco use; Z78.1 Physical restraint status
CPT/HCPCS: 80053; 80307; 82550; 82552; 85025; 96361; 96372; 96374; 96376; 99285; J2060; J7030

== ENCOUNTER 2017-09-25 08:39 | Emergency (ER) | payer MEDICAID, OTHER ==
[~2017-09-25] VITALS: Ht 177.8 cm; Wt 65.0 kg
[2017-09-25] MEDS ORDERED: SODIUM CHLOR 0.9% 1000 ML INJ 1,000 ML IV ONE (09:05)
[2017-09-25 09:06] VITALS: BP 172/96; PULSE 101; RESP 17; TEMP 97.6; O2SAT 100
[2017-09-25] MEDS ORDERED: LORazepam 2 MG/ML VIAL IV PUSH ONE (09:15)
[2017-09-25] MEDS ORDERED: SODIUM CHLORIDE 0.9% FLUSH 10 ML FLUSH IVF PRN (09:15)
[2017-09-25 09:34] VITALS: O2SAT 99
[2017-09-25 09:45] LABS: AUTOMATED NEUTROPHIL # 11.1 TH/MM3 (1.8-7.7); BASOPHIL % 0.3 % (0.0-2.0); EOSINOPHIL % 0.2 % (0.0-4.0); HEMATOCRIT 47.4 % (39.0-51.0); HEMOGLOBIN 15.4 GM/DL (13.0-17.0); LYMPHOCYTE # 1.5 TH/MM3 (1.0-4.8); MEAN CELL VOLUME 85.4 FL (80.0-100.0); MEAN CORPUSCULAR HEMOGLOBIN 27.9 PG (27.0-34.0); MEAN CORPUSCULAR HGB CONC 32.6 % (32.0-36.0); MEAN PLATELET VOLUME 7.6 FL (7.0-11.0); MONO % 6.3 % (0.0-8.0); MONOCYTE # 0.9 TH/MM3 (0-0.9); NEUT % 82.2 % (16.0-70.0); PLATELET COUNT 287 TH/MM3 (150-450); RED BLOOD COUNT 5.55 MIL/MM3 (4.50-5.90); RED CELL DISTRIBUTION WIDTH 13.2 % (11.6-17.2); WHITE BLOOD COUNT 13.5 TH/MM3 (4.0-11.0)
[2017-09-25 10:03] LABS: ALBUMIN 4.6 GM/DL (3.4-5.0); AST (GOT) 74 U/L (15-37); BLOOD UREA NITROGEN 15 MG/DL (7-18); CALCIUM 9.3 MG/DL (8.5-10.1); CHLORIDE 102 MEQ/L (98-107); CREATININE 1.07 MG/DL (0.60-1.30); GLOMERULAR FILTRATION RATE 76 ML/MIN (>89); GLUCOSE,RANDOM 97 MG/DL (74-106); SODIUM (NA) 137 MEQ/L (136-145)
[2017-09-25 10:04] LABS: ALT (GPT) 49 U/L (12-78)
[2017-09-25 10:06] LABS: ALKALINE PHOSPHATASE 74 U/L (45-117); TOTAL BILIRUBIN ADULT 1.1 MG/DL (0.2-1.0); TOTAL PROTEIN 8.3 GM/DL (6.4-8.2)
--- NOTE | 2017-09-25 10:23 | PD ---
HPI Chief Complaint: Psychiatric Symptoms Time Seen by Provider: 09:01 Travel History International Travel<30 days: No Contact w/Intl Traveler<30days: No Traveled to known affect area: No History of Present Illness HPI The patient is a 41-year-old male and arrives as a Barker act. He has a known history of amphetamine abuse and today was found wandering about in public with no clothes and somewhat confused. He arrives stating "I don't know." He was reported to have lesions about the legs consistent with scratching and abrasions. However none is consistent with self-harm. Patient denies suicidal and homicidal ideation. PFSH Past Medical History Anxiety: Yes Diminished Hearing: No Immunizations Current: Yes Social History Alcohol Use: No (UTO) Tobacco Use: Yes (UTO) Substance Use: Yes Allergies-Medications (Allergen,Severity, Reaction): Coded Allergies: No Known Allergies (Verified , 05/15/17) Reported Meds & Prescriptions Reported Meds & Active Scripts Active Active Prescriptions or Reported Medications Unobtainable Review of Systems Except as stated in HPI: all other systems reviewed are Neg General / Constitutional: No: Fever Cardiovascular: Positive: Chest Pain or Discomfort Respiratory: Positive: Cough, Shortness of Breath Physical Exam Narrative GENERAL: Well-nourished well-developed 41-year-old male SKIN: Warm and dry. Multiple lesions are present throughout the lower extremities none is amenable to suture repair are consistent with a deep laceration, superficial abrasions are only seen. HEAD: Atraumatic. Normocephalic. EYES: Pupils equal and round. No scleral icterus. No injection or drainage. ENT: No nasal bleeding or discharge. Mucous membranes pink and moist. Dry mucous membranes. NECK: Trachea midline. No JVD. CARDIOVASCULAR: Regular rhythm. Tachycardia. RESPIRATORY: No accessory muscle use. Clear to auscultation. Breath sounds equal bilaterally. GASTROINTESTINAL: Abdomen soft, non-tender, nondistended. Hepatic and splenic margins not palpable. MUSCULOSKELETAL: Extremities without clubbing, cyanosis, or edema. No obvious deformities. NEUROLOGICAL: Awake and alert. No obvious cranial nerve deficits. Motor grossly within normal limits. Five out of 5 muscle strength in the arms and legs. Normal speech. PSYCHIATRIC: No HI/SI. No hallucinations. Data Data Last Documented VS Vital Signs Date Time Temp Pulse Resp B/P (MAP) Pulse Ox O2 Delivery O2 Flow Rate FiO2 09/25/17 09:34 99 09/25/17 09:06 97.6 101 17 Room Air VS reviewed Orders Orders Complete Blood Count With Diff (09/25/17 09:05) Comprehensive Metabolic Panel (09/25/17 09:05) Urinalysis - C+S If Indicated (09/25/17 09:05) Iv Access Insert/Monitor (09/25/17 09:05) Ecg Monitoring (09/25/17 09:05) Oximetry (09/25/17 09:05) Lorazepam Inj (Ativan Inj) (09/25/17 09:15) Sodium Chloride 0.9% Flush (Ns Flush) (09/25/17 09:15) Sodium Chlor 0.9% 1000 Ml Inj (Ns 1000 M (09/25/17 09:05) Drug Screen, Random Urine (09/25/17 09:05) Potassium Chloride (Kcl) (09/25/17 12:15) Ed Discharge Order (09/25/17 12:06) Labs Laboratory Tests Test 09/25/17 09:30 White Blood Count 13.5 TH/MM3 Red Blood Count 5.55 MIL/MM3 Hemoglobin 15.4 GM/DL Hematocrit 47.4 % Mean Corpuscular Volume 85.4 FL Mean Corpuscular Hemoglobin 27.9 PG Mean Corpuscular Hemoglobin Concent 32.6 % Red Cell Distribution Width 13.2 % Platelet Count 287 TH/MM3 Mean Platelet Volume 7.6 FL Neutrophils (%) (Auto) 82.2 % Lymphocytes (%) (Auto) 11.0 % Monocytes (%) (Auto) 6.3 % Eosinophils (%) (Auto) 0.2 % Basophils (%) (Auto) 0.3 % Neutrophils # (Auto) 11.1 TH/MM3 Lymphocytes # (Auto) 1.5 TH/MM3 Monocytes # (Auto) 0.9 TH/MM3 Eosinophils # (Auto) 0.0 TH/MM3 Basophils # (Auto) 0.0 TH/MM3 CBC Comment DIFF FINAL Differential Comment Blood Urea Nitrogen 15 MG/DL Creatinine 1.07 MG/DL Random Glucose 97 MG/DL Total Protein 8.3 GM/DL Albumin 4.6 GM/DL Calcium Level 9.3 MG/DL Alkaline Phosphatase 74 U/L Aspartate Amino Transf (AST/SGOT) 74 U/L Alanine Aminotransferase (ALT/SGPT) 49 U/L Total Bilirubin 1.1 MG/DL Sodium Level 137 MEQ/L Potassium Level 3.1 MEQ/L Chloride Level 102 MEQ/L Carbon Dioxide Level 25.0 MEQ/L Anion Gap 10 MEQ/L Estimat Glomerular Filtration Rate 76 ML/MIN [facility] Medical Decision Making Medical Screen Exam Complete: Yes Emergency Medical Condition: Yes Medical Record Reviewed: Yes Differential Diagnosis Altered mental status/psychosis due to infection/environmental exposure/ metabolic abnormality, polypharmacy, alcohol abuse/intoxication, illicit or prescribed drug abuse, malingering/secondary gain, non-organic psychiatric disease Narrative Course CBC & BMP Diagram 09/25/17 09:30 Total Protein 8.3 #H, Albumin 4.6, Calcium Level 9.3, Alkaline Phosphatase 74, Aspartate Amino Transf (AST/SGOT) 74 H, Alanine Aminotransferase (ALT/SGPT) 49, Total Bilirubin 1.1 H The patient received IV fluids. Vital signs normalized. The patient is AO 3 and has no intention of hurting himself or others. Barker Act lifted by the undersigned. Diagnosis Primary Impression: Substance abuse Additional Impressions: Hypokalemia Substance-induced psychotic disorder with delusions Med/Other Pt SpecificInfo: No Change to Meds Scripts Unable to Obtain Active Prescriptions or Reported Meds Disposition: 01 DISCHARGE HOME Condition: Stable Abdoulaye Finn MD Sep 25, 2017 10:23
[2017-09-25] MEDS ORDERED: POTASSIUM CHLORIDE 20 MEQ CONTROLLED RELEASE TAB PO ONE (12:15)
== END 2017-09-25 12:50 | disposition home or self-care (01) ==
LOC: NEPD 08:39
DX: F15.10 Other stimulant abuse, uncomplicated (principal); E87.6 Hypokalemia; F23 Brief psychotic disorder; F22 Delusional disorders; F41.9 Anxiety disorder, unspecified; Z72.0 Tobacco use
CPT/HCPCS: 80053; 85025; 96361; 96374; 99284; J2060; J7030

== ENCOUNTER 2017-09-28 10:59 | Emergency (ER) | payer MEDICAID, OTHER ==
[~2017-09-28] VITALS: Ht 175.3 cm; Wt 85.0 kg
[2017-09-28 11:05] VITALS: BP 141/100; PULSE 120; RESP 20; TEMP 97.3; O2SAT 96
--- NOTE | 2017-09-28 11:52 | PD ---
HPI Chief Complaint: BA Time Seen by Provider: 11:43 Travel History International Travel<30 days: No Contact w/Intl Traveler<30days: No History of Present Illness HPI This is a 41-year-old male here under [place] act brought in by Americo FLORES. According to the [place] act paperwork the patient was found near traffic in a squatted position. When he was [place] the park police he became agitated and appeared confused. He made statements that "people were shooting at him" and did not believe that long enforcement officers were "real". The patient has been evaluated in the emergency department 3 times this month. He has a known history of amphetamine use. He denies homicidal or suicidal ideation to myself. He reports he ingested "unknown drugs". He denies any pain or injuries. [facility] Past Medical History Anxiety: Yes Diminished Hearing: No Immunizations Current: Yes Social History Alcohol Use: No (UTO) Tobacco Use: Yes (UTO) Substance Use: Yes Allergies-Medications (Allergen,Severity, Reaction): Coded Allergies: No Known Allergies (Verified Allergy, Unknown, 09/28/17) Reported Meds & Prescriptions Reported Meds & Active Scripts Active Active Prescriptions or Reported Medications Unobtainable Review of Systems Except as stated in HPI: all other systems reviewed are Neg General / Constitutional: No: Fever Eyes: No: Visual changes HENT: No: Headaches Cardiovascular: No: Chest Pain or Discomfort Respiratory: No: Shortness of Breath Gastrointestinal: No: Abdominal Pain Genitourinary: No: Dysuria Musculoskeletal: No: Pain Skin: No Rash Neurologic: No: Weakness Physical Exam Narrative GENERAL: Alert male disheveled appearance SKIN: Warm and dry. HEAD: Normocephalic. atraumatic EYES: Pupils equal, round, reactive to light. No injection or drainage. NECK: Supple, trachea midline. CARDIOVASCULAR: Regular rate and rhythm RESPIRATORY: Breath sounds equal bilaterally. No accessory muscle use. GASTROINTESTINAL: Abdomen soft, non-tender, nondistended. MUSCULOSKELETAL: No cyanosis, or edema. Moving all extremities freely. BACK: Nontender without obvious deformity. No CVA tenderness. Psych: Limited eye contact. Answers questions appropriately. Data Data Last Documented VS Vital Signs Date Time Temp Pulse Resp B/P (MAP) Pulse Ox O2 Delivery O2 Flow Rate FiO2 09/29/17 13:56 09/29/17 09:50 97.6 101 18 100 Room Air Orders Orders Diet Regular Basic (09/28/17 Lunch) Psych Screen (09/28/17 11:44) Ziprasidone Inj (Geodon Inj) (09/28/17 15:00) Diphenhydramine Inj (Benadryl Inj) (09/28/17 15:00) Diet Regular Basic (09/28/17 Dinner) Diet Regular Basic (09/29/17 Breakfast) Ed Discharge Order (09/29/17 13:37) MDM Medical Decision Making Medical Screen Exam Complete: Yes Emergency Medical Condition: Yes Differential Diagnosis Substance abuse, mood disorder, dehydration Narrative Course 41-year-old male here under [place] act after he was found intoxicated and paranoid near oncoming traffic. Patient is well-known to the emergency department. He has a history of amphetamine abuse. He was seen here 3 days ago at that time had lab work. Those labs were reviewed. I do not feel patient needs repeat lab work. He has a known history of amphetamine abuse. He has been evaluated multiple times for the same complaint per EMR. He is medically stable. He is medically cleared and pending psych evaluation. Mental health screening discussed with the patient. Psychiatric screen ordered. Diagnosis Primary Impression: Substance abuse Scripts Unable to Obtain Active Prescriptions or Reported Meds Prachi Low Sep 28, 2017 11:52
--- NOTE | 2017-09-28 14:59 | PD ---
History of Present Illness Chief Complaint: Psychiatric Symptoms Time Seen by Provider: 14:50 Travel History International Travel<30 Days: No Contact w/Intl Traveler<30days: No Known affected area: No Legal Status Legal Status: [employer] History of Present Illness: History of Present Illness HPI This is a 41-year-old male with history of substance use disorder including amphetamine abuse who is here under [place] act brought in by Americo FLORES. According to the [place] act paperwork the patient "was found near traffic in a squatted position. When he was approached by the boating safety officer he became agitated and appeared confused. He made statements that "people were shooting at him" and did not believe that long enforcement officers were "real". The patient is seen in [facility] he is observed putting his mattress up against the wall and hiding behind. He is also observed talking to people that are not there. He is hypervigilant. He wants to keep the door closed in order to" keep the evil air out". The patient at this time requires ETO for current psychotic behavior. He is unable to provide any other information. Electronic medical record reviewed. He has had multiple visits to this ED for substance use related symptomatology. He was last seen September 25 of this year. He was brought in under a [place] act after he was found walking naked around her neighborhood. He was also seen September 23 and at that time he believes that the ghosts were after him. There is a toxicology report for the visit of September 23 and it was positive for amphetamines. The patient today is refusing to have lab work drawn because he believes that" we are trying to kill him". PFSH Past Medical History Anxiety: Yes Diminished Hearing: No Immunizations Current: Yes Psychiatric History Psychiatric History Hx Psychiatric Treatment: Patient unable to provide any psychiatric history at this time. History of Inpatient Treatment: No Guns or firearms in home: No Social History Unable to obtain at this time Hx Alcohol Use: No (UTO) Hx Tobacco Use: Yes (UTO) Hx Substance Use: Yes Substance Use Type: Amphetamines-Stimulants Other Substances Used: pt stated i do whatever i want to do occasionaly, but not often Hx of Substance Use Treatment: No Family Psychiatric History Unable to obtain Allergies-Medications (Allergen,Severity, Reaction): Coded Allergies: No Known Allergies (Verified Allergy, Unknown, 09/28/17) Reported Meds & Prescriptions Reported Meds & Active Scripts Active Active Prescriptions or Reported Medications Unobtainable Review of Systems ROS Limitations: Psychotic Mental Status Examination Appearance: Disheveled Consciousness: Alert Orientation: x4 (unable to determine) Motor Activity: Normal gait Speech: Incoherent Language: Adequate Fund of Knowledge: Adequate (unable to assess) Attention and Concentration: Easily Distracted Memory: Unremarkable (unable to assess) Mood: Other (slight agitated) Affect: Anxious (fearful) Thought Process & Associations: Disorganized Thought Content: Hallucinations Hallucination Type: Auditory Delusion Type: None Suicidal Ideation: No Suicidal Plan: No Suicidal Intention: No Homicidal Ideation: No Homicidal Plan: No Homicidal Intention: No Insight: Poor Judgment: Poor MDM Medical Decision Making Medical Record Reviewed: Yes Assessment/Plan 41-year-old male with history of substance use disorder including amphetamine abuse who presents under a [place] act initiated by law enforcement. According to the [place] act the patient was found near traffic in a squatting position and appeared confused. He made statements that people were shooting at him and did not believe the law enforcement officers were real. While in [facility] the patient has taken his mattress off his bed and has been found hiding behind a mattress. He has locked his door, he is observed talking to people that are not there, he insisted on having the door locked since he believes there is evil air outside his role. At this time the patient is given an ETO. He will be placed on [facility] waiting list for further treatment. If the patient has not been called to [facility] he can be reevaluated in the morning for disposition. Orders Orders Diet Regular Basic (09/28/17 Lunch) Complete Blood Count With Diff (09/28/17 11:44) Comprehensive Metabolic Panel (09/28/17 11:44) Psych Screen (09/28/17 11:44) Drug Screen, Random Urine (09/28/17 11:44) Alcohol (Ethanol) (09/28/17 11:44) Salicylates (Aspirin) (09/28/17 11:44) Tylenol (Acetaminophen) (09/28/17 11:44) Ziprasidone Inj (Geodon Inj) (09/28/17 15:00) Diphenhydramine Inj (Benadryl Inj) (09/28/17 15:00) Results Vital Signs Date Time Temp Pulse Resp B/P (MAP) Pulse Ox O2 Delivery O2 Flow Rate FiO2 09/28/17 11:05 97.3 120 20 141/100 (114) 96 Room Air Diagnosis Primary Impression: Substance abuse 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
[2017-09-28] MEDS ORDERED: diphenhydrAMINE HCL 50 MG/ML VIAL IM ONE (15:00)
[2017-09-28] MEDS ORDERED: ZIPRASIDONE MESYLATE 20 MG VIAL IM ONE (15:00)
[2017-09-29 06:45] VITALS: RESP 17
[2017-09-29 09:50] VITALS: BP 139/84; PULSE 101; RESP 18; TEMP 97.6; O2SAT 100
--- NOTE | 2017-09-29 13:37 | PD ---
Physical Exam Date Seen by Provider: Sep 29, 2017 Time Seen by Provider: 13:35 Narrative 41-year-old male previously medically clear for psychiatric evaluation, has been seen in evaluated by psychiatric staff and felt to be psychiatrically stable for discharge. Patient continues to be medically stable at this time. Patient will follow up as per psychiatric plan. Data Data Last Documented VS Vital Signs Date Time Temp Pulse Resp B/P (MAP) Pulse Ox O2 Delivery O2 Flow Rate FiO2 09/29/17 09:50 97.6 101 18 139/84 (102) 100 Room Air Orders Orders Diet Regular Basic (09/28/17 Lunch) Psych Screen (09/28/17 11:44) Ziprasidone Inj (Geodon Inj) (09/28/17 15:00) Diphenhydramine Inj (Benadryl Inj) (09/28/17 15:00) Diet Regular Basic (09/28/17 Dinner) Diet Regular Basic (09/29/17 Breakfast) Diet Regular Basic (09/29/17 Lunch) MDM Medical Record Reviewed: Yes Supervised Visit with HOLLY: Yes Narrative Course 41-year-old male previously medically clear for psychiatric evaluation, has been seen in evaluated by psychiatric staff and felt to be psychiatrically stable for discharge. Patient continues to be medically stable at this time. Patient will follow up as per psychiatric plan. 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
== END 2017-09-29 13:59 | disposition home or self-care (01) ==
LOC: NEDAMB 10:59 → NEPJ 09-29 13:59
DX: F19.950 Other psychoactive substance use, unspecified with psychoactive substance-induced psychotic disorder with delusions (principal); F15.150 Other stimulant abuse with stimulant-induced psychotic disorder with delusions
CPT/HCPCS: 96372; 99284; J1200; J3486

== ENCOUNTER 2017-12-02 17:29 | Emergency (ER) | payer MEDICAID, OTHER ==
[~2017-12-02] VITALS: Ht 177.8 cm; Wt 64.0 kg
[2017-12-02 17:40] VITALS: RESP 22; TEMP 97.2; O2SAT 97
--- NOTE | 2017-12-02 17:48 | PD ---
HPI Chief Complaint: confusion Time Seen by Provider: 17:41 Travel History International Travel<30 days: No Contact w/Intl Traveler<30days: No Traveled to known affect area: No History of Present Illness HPI evac called by patient, he was found in bathroom of store, soaking wet with water. patient simply requested transport to hospital. once arrived at the ER patient was in a katz to leave and was not answering questions very well....denies almonte/loc/n/v/d/rash/ and actually during the history taking part he was asking me why do people keep asking him the same questions? (orientation questions such as year, month, [facility], etc...which were answered correctly by patient, multiple times!) all: denies PFSH Past Medical History Anxiety: Yes Diminished Hearing: No Immunizations Current: Yes Social History Alcohol Use: No (UTO) Tobacco Use: Yes (UTO) Substance Use: Yes Allergies-Medications (Allergen,Severity, Reaction): Coded Allergies: No Known Allergies (Verified Allergy, Unknown, 12/02/17) Reported Meds & Prescriptions Reported Meds & Active Scripts Active Active Prescriptions or Reported Medications Unobtainable Review of Systems General / Constitutional: No: Fever Eyes: No: Visual changes HENT: No: Headaches Cardiovascular: No: Chest Pain or Discomfort Respiratory: No: Shortness of Breath Gastrointestinal: No: Abdominal Pain Genitourinary: No: Dysuria Musculoskeletal: No: Pain Skin: No Rash Neurologic: No: Weakness Psychiatric: Positive: Disorder of Thought Endocrine: No: Polydipsia Hematologic/Lymphatic: No: Easy Bruising Physical Exam Narrative GENERAL: SKIN: Warm and dry. HEAD: Atraumatic. Normocephalic. EYES: Pupils equal and round. No scleral icterus. No injection or drainage. ENT: No nasal bleeding or discharge. Mucous membranes pink and moist. NECK: Trachea midline. No JVD. CARDIOVASCULAR: Regular rate and rhythm. RESPIRATORY: No accessory muscle use. Clear to auscultation. Breath sounds equal bilaterally. GASTROINTESTINAL: Abdomen soft, non-tender, nondistended. MUSCULOSKELETAL: Extremities without clubbing, cyanosis, or edema. No obvious deformities. NEUROLOGICAL: Awake and alert. No obvious cranial nerve deficits. Motor grossly within normal limits. Five out of 5 muscle strength in the arms and legs. Normal speech. PSYCHIATRIC: disordered thoughts, unable to stay on task, Data Data Last Documented VS Orders Orders Ct Brain W/O Iv Contrast(Rout) (12/02/17 17:41) Blood Glucose (12/02/17 17:41) Haloperidol Inj (Haldol Inj) (12/02/17 18:00) Lorazepam Inj (Ativan Inj) (12/02/17 18:00) Ed Discharge Order (12/03/17 00:01) MDM Medical Decision Making Medical Screen Exam Complete: Yes Emergency Medical Condition: Yes Medical Record Reviewed: Yes Differential Diagnosis ich v hypoglycemia v substance use v psychosis Narrative Course patient is here on a voluntary basis, stated that he had "been shot". after a thorough head to toe examination with patient fully unclothed, no evidence of ANY wounds. patient was given haldol and ativan to calm some of his agitation, after 4 hours of observation, patient was medically cleared. PATIENT CT NEG FOR ICH, ACCUCHECK NORMAL AND AFTER RESTING PATIENT SHARED THAT HE HAD USED DRUGS PRIOR TO ARRIVAL AND FEELS BETTER NOW AND STATES THAT HE WILL FOLLOW UP OUTPATIENT. denies si/hi at this time and states that he will seek outpatient detox Diagnosis Primary Impression: MEDICAL CLEARANCE Referrals: [facility] Patient Instructions: General Instructions, Medical Clearance for Substance Abuse Treatment (ED) Scripts Unable to Obtain Active Prescriptions or Reported Meds Disposition: 01 DISCHARGE HOME Condition: Stable Maynor Villegas MD Dec 02, 2017 17:48
[2017-12-02] MEDS ORDERED: HALOPERIDOL LACTATE 5 MG/ML AMP IM ONE (18:00)
[2017-12-02] MEDS ORDERED: LORazepam 2 MG/ML VIAL IM ONE (18:00)
--- NOTE | 2017-12-02 19:38 | RADRPT ---
EXAM DATE/TIME: 12/02/2017 19:14 [place] COMPARISON: No previous studies available for comparison. INDICATIONS : Altered mental status, confusion. RADIATION DOSE: CTDIvol (mGy) MEDICAL HISTORY : Seizures. Diabetes mellitus type 2. Carcinoma, not otherwise specified. SURGICAL HISTORY : None. ENCOUNTER: Initial ACUITY: 1 day PAIN SCALE: 0/10 LOCATION: cranial TECHNIQUE: Multiple contiguous axial images were obtained of the head. Using automated exposure control and adj ustment of the mA and/or kV according to patient size, radiation dose was kept as low as reasonably a chievable to obtain optimal diagnostic quality images. DICOM format image data is available electro nically for review and comparison. FINDINGS: CEREBRUM: The ventricles are normal for age. No evidence of midline shift, mass lesion, hemorrhage or acute in farction. No extra-axial fluid collections are seen. POSTERIOR FOSSA: The cerebellum and brainstem are intact. The 4th ventricle is midline. The cerebellopontine angle i s unremarkable. EXTRACRANIAL: The visualized portion of the orbits is intact. SKULL: The calvaria is intact. No evidence of skull fracture. CONCLUSION: 1. No acute intracranial abnormalities. Casey Medrano MD on December 02, 2017 at 19:32 Board Certified Radiologist. This report was verified electronically.
== END 2017-12-03 00:22 | disposition home or self-care (01) ==
LOC: NEPD 17:29
DX: R41.0 Disorientation, unspecified (principal)
CPT/HCPCS: 70450; 96372; 99283; J1630; J2060

== ENCOUNTER 2018-01-26 16:43 | Emergency (ER) | payer OTHER ==
[~2018-01-26] VITALS: Ht 172.7 cm; Wt 66.0 kg
--- NOTE | 2018-01-26 17:08 | PD ---
HPI Chief Complaint: ba Time Seen by Provider: 17:05 Travel History International Travel<30 days: No Contact w/Intl Traveler<30days: No Traveled to known affect area: No History of Present Illness HPI This is a 42-year-old male who presents under [place] act initiated by the Police Department. According to his paperwork the patient made statements that he wanted the police to just kill him and that he no longer wanted to live. The patrol police lieutenant reports that he was walking himself in a public park bathroom and when he exited he requested that the police kill him. 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 He is currently not providing any additional history, he is requesting to leave. [facility] Past Medical History Anxiety: Yes Diminished Hearing: No Psychiatric: Yes Immunizations Current: Yes Social History Alcohol Use: No Tobacco Use: Yes Substance Use: Yes Allergies-Medications (Allergen,Severity, Reaction): Coded Allergies: No Known Allergies (Verified Allergy, Unknown, 01/26/18) Reported Meds & Prescriptions Reported Meds & Active Scripts Active Active Prescriptions or Reported Medications Unobtainable Review of Systems Except as stated in HPI: all other systems reviewed are Neg Physical Exam Narrative GENERAL: This is a somewhat disheveled male in no acute distress. He is tachycardic. SKIN: Warm and moist. HEAD: Atraumatic. Normocephalic. EYES: Pupils equal and round. No scleral icterus. No injection or drainage. ENT: No nasal bleeding or discharge. Mucous membranes pink and moist. NECK: Trachea midline. No JVD. CARDIOVASCULAR: Regular rate and rhythm. No murmur appreciated. RESPIRATORY: No accessory muscle use. Clear to auscultation. Breath sounds equal bilaterally. GASTROINTESTINAL: Abdomen soft, non-tender, nondistended. Hepatic and splenic margins not palpable. MUSCULOSKELETAL: No obvious deformities. No clubbing. No cyanosis. No edema. NEUROLOGICAL: Awake and alert. No obvious cranial nerve deficits. Motor grossly within normal limits. Normal speech. PSYCHIATRIC: Insight and judgment appear limited. Data Data Last Documented VS Vital Signs Date Time Temp Pulse Resp B/P (MAP) Pulse Ox O2 Delivery O2 Flow Rate FiO2 01/26/18 17:47 98.7 128 18 155/90 (111) 100 Room Air Orders Orders Complete Blood Count With Diff (01/26/18 17:06) Comprehensive Metabolic Panel (01/26/18 17:06) Thyroid Stimulating Hormone (01/26/18 17:06) Psych Screen (01/26/18 17:06) Drug Screen, Random Urine (01/26/18 17:06) Alcohol (Ethanol) (01/26/18 17:06) Creatine Kinase (Cpk) (01/26/18 17:06) Diet Regular Basic (01/26/18 Dinner) CKMB (01/26/18 17:19) CKMB% (01/26/18 17:19) Labs Laboratory Tests Test 01/26/18:19 White Blood Count 12.3 TH/MM3 Red Blood Count 5.54 MIL/MM3 Hemoglobin 15.2 GM/DL Hematocrit 46.7 % Mean Corpuscular Volume 84.3 FL Mean Corpuscular Hemoglobin 27.3 PG Mean Corpuscular Hemoglobin Concent 32.4 % Red Cell Distribution Width 13.3 % Platelet Count 340 TH/MM3 Mean Platelet Volume 7.5 FL Neutrophils (%) (Auto) 80.0 % Lymphocytes (%) (Auto) 12.1 % Monocytes (%) (Auto) 7.3 % Eosinophils (%) (Auto) 0.1 % Basophils (%) (Auto) 0.5 % Neutrophils # (Auto) 9.8 TH/MM3 Lymphocytes # (Auto) 1.5 TH/MM3 Monocytes # (Auto) 0.9 TH/MM3 Eosinophils # (Auto) 0.0 TH/MM3 Basophils # (Auto) 0.1 TH/MM3 CBC Comment DIFF FINAL Differential Comment Blood Urea Nitrogen 22 MG/DL Creatinine 1.17 MG/DL Random Glucose 130 MG/DL Total Protein 8.5 GM/DL Albumin 4.6 GM/DL Calcium Level 9.6 MG/DL Alkaline Phosphatase 69 U/L Aspartate Amino Transf (AST/SGOT) 50 U/L Alanine Aminotransferase (ALT/SGPT) 34 U/L Total Bilirubin 1.1 MG/DL Sodium Level 140 MEQ/L Potassium Level 3.4 MEQ/L Chloride Level 101 MEQ/L Carbon Dioxide Level 26.8 MEQ/L Anion Gap 12 MEQ/L Estimat Glomerular Filtration Rate 68 ML/MIN Total Creatine Kinase 992 U/L Creatine Kinase MB % 1.0 % Thyroid Stimulating Hormone 3rd Gen 3.990 uIU/ML Ethyl Alcohol Level LESS THAN 3 MG/DL [facility] Medical Decision Making Medical Screen Exam Complete: Yes Emergency Medical Condition: Yes Medical Record Reviewed: Yes Differential Diagnosis Sympathomimetic drug abuse, acute psychosis, substance-induced mood disorder, schizophrenia, bipolar disorder Narrative Course Mental health screening discussed with the patient. Psychiatric screen ordered. I suspect that the patient has been abusing methamphetamines as this appears to be a common presentation for this patient and is consistent with his symptoms and examination. Urine drug screen is pending. He has an elevated CK, 992, likely secondary to the sympathomimetic drug abuse. He is able to tolerate oral hydration excellently and he will be hydrated orally. He is medically cleared for psychiatric disposition. Diagnosis Primary Impression: Medical clearance for psychiatric admission Scripts Unable to Obtain Active Prescriptions or Reported Meds Perez Lara January 26, 2018 17:08
[2018-01-26 17:10] VITALS: BP 144/95; PULSE 125; RESP 20; TEMP 98.2; O2SAT 100
[2018-01-26 17:33] LABS: AUTOMATED NEUTROPHIL # 9.8 TH/MM3 (1.8-7.7); BASOPHIL # 0.1 TH/MM3 (0-0.2); BASOPHIL % 0.5 % (0.0-2.0); EOSINOPHIL % 0.1 % (0.0-4.0); HEMATOCRIT 46.7 % (39.0-51.0); HEMOGLOBIN 15.2 GM/DL (13.0-17.0); LYMPH % 12.1 % (9.0-44.0); LYMPHOCYTE # 1.5 TH/MM3 (1.0-4.8); MEAN CELL VOLUME 84.3 FL (80.0-100.0); MEAN CORPUSCULAR HEMOGLOBIN 27.3 PG (27.0-34.0); MEAN CORPUSCULAR HGB CONC 32.4 % (32.0-36.0); MEAN PLATELET VOLUME 7.5 FL (7.0-11.0); MONO % 7.3 % (0.0-8.0); MONOCYTE # 0.9 TH/MM3 (0-0.9); PLATELET COUNT 340 TH/MM3 (150-450); RED BLOOD COUNT 5.54 MIL/MM3 (4.50-5.90); RED CELL DISTRIBUTION WIDTH 13.3 % (11.6-17.2); WHITE BLOOD COUNT 12.3 TH/MM3 (4.0-11.0)
[2018-01-26 17:46] LABS: ALBUMIN 4.6 GM/DL (3.4-5.0); ALT (GPT) 34 U/L (12-78); AST (GOT) 50 U/L (15-37); BICARBONATE 26.8 MEQ/L (21.0-32.0); BLOOD UREA NITROGEN 22 MG/DL (7-18); CALCIUM 9.6 MG/DL (8.5-10.1); CHLORIDE 101 MEQ/L (98-107); CREATININE 1.17 MG/DL (0.60-1.30); GLOMERULAR FILTRATION RATE 68 ML/MIN (>89); GLUCOSE,RANDOM 130 MG/DL (74-106); SODIUM (NA) 140 MEQ/L (136-145)
[2018-01-26 17:47] VITALS: BP 155/90; PULSE 128; RESP 18; TEMP 98.7; O2SAT 100
[2018-01-26 17:58] LABS: ALKALINE PHOSPHATASE 69 U/L (45-117); TOTAL BILIRUBIN ADULT 1.1 MG/DL (0.2-1.0); TOTAL PROTEIN 8.5 GM/DL (6.4-8.2)
[2018-01-26 22:07] VITALS: BP 132/75; PULSE 122; RESP 20; TEMP 96.9; O2SAT 100
--- NOTE | 2018-01-27 08:45 | PD ---
Physical Exam Date Seen by Provider: January 27, 2018 Time Seen by Provider: 08:42 Data Data Last Documented VS Vital Signs Date Time Temp Pulse Resp B/P (MAP) Pulse Ox O2 Delivery O2 Flow Rate FiO2 01/26/18 22:07 96.9 122 20 132/75 (94) 100 Room Air Orders Orders Complete Blood Count With Diff (01/26/18 17:06) Comprehensive Metabolic Panel (01/26/18 17:06) Thyroid Stimulating Hormone (01/26/18 17:06) Psych Screen (01/26/18 17:06) Drug Screen, Random Urine (01/26/18 17:06) Alcohol (Ethanol) (01/26/18 17:06) Creatine Kinase (Cpk) (01/26/18 17:06) Diet Regular Basic (01/26/18 Dinner) CKMB (01/26/18 17:19) CKMB% (01/26/18 17:19) Diet Regular Basic (01/27/18 Breakfast) Labs Laboratory Tests Test 01/26/18 17:19 01/27/18 06:40 White Blood Count 12.3 TH/MM3 Red Blood Count 5.54 MIL/MM3 Hemoglobin 15.2 GM/DL Hematocrit 46.7 % Mean Corpuscular Volume 84.3 FL Mean Corpuscular Hemoglobin 27.3 PG Mean Corpuscular Hemoglobin Concent 32.4 % Red Cell Distribution Width 13.3 % Platelet Count 340 TH/MM3 Mean Platelet Volume 7.5 FL Neutrophils (%) (Auto) 80.0 % Lymphocytes (%) (Auto) 12.1 % Monocytes (%) (Auto) 7.3 % Eosinophils (%) (Auto) 0.1 % Basophils (%) (Auto) 0.5 % Neutrophils # (Auto) 9.8 TH/MM3 Lymphocytes # (Auto) 1.5 TH/MM3 Monocytes # (Auto) 0.9 TH/MM3 Eosinophils # (Auto) 0.0 TH/MM3 Basophils # (Auto) 0.1 TH/MM3 CBC Comment DIFF FINAL Differential Comment Blood Urea Nitrogen 22 MG/DL Creatinine 1.17 MG/DL Random Glucose 130 MG/DL Total Protein 8.5 GM/DL Albumin 4.6 GM/DL Calcium Level 9.6 MG/DL Alkaline Phosphatase 69 U/L Aspartate Amino Transf (AST/SGOT) 50 U/L Alanine Aminotransferase (ALT/SGPT) 34 U/L Total Bilirubin 1.1 MG/DL Sodium Level 140 MEQ/L Potassium Level 3.4 MEQ/L Chloride Level 101 MEQ/L Carbon Dioxide Level 26.8 MEQ/L Anion Gap 12 MEQ/L Estimat Glomerular Filtration Rate 68 ML/MIN Total Creatine Kinase 992 U/L Creatine Kinase MB 10.1 NG/ML Creatine Kinase MB % 1.0 % Thyroid Stimulating Hormone 3rd Gen 3.990 uIU/ML Ethyl Alcohol Level LESS THAN 3 MG/DL Urine Opiates Screen NEG Urine Barbiturates Screen NEG Urine Amphetamines Screen POS Urine Benzodiazepines Screen NEG Urine Cocaine Screen NEG Urine Cannabinoids Screen NEG MDM Supervised Visit with HOLLY: No Narrative Course 42-year-old male brought in to the ED under Barker act. He was initially evaluated by Perez Lara PA-C and medically cleared. He was then evaluated by Dr. Owens, psychiatry, who lifted the Barker act. He was diagnosed with substance-induced mood disorder. Plan is for the patient to seek outpatient treatment at [facility]. The patient is stable and discharged home. Diagnosis Primary Impression: Medical clearance for psychiatric admission Additional Impression: Substance induced mood disorder Referrals: [facility] Additional Instruction: Follow-up with Slade Sebastian for outpatient substance abuse treatment. Return to the ED for any urgent or emergent medical condition. Scripts Unable to Obtain Active Prescriptions or Reported Meds Disposition: 01 DISCHARGE HOME Condition: Stable Carrol Yeh January 27, 2018 08:45
--- NOTE | 2018-01-27 14:29 | PD.PSY.CON ---
Provisional Diagnosis Admission Date [place]. Substance-induced mood disorder History of Present Illness Service Psychiatry Consult Requested By ER Reason for Consult Psychiatry Primary Care Physician No Primary Care Physician HPI Patient was seen this morning at 7:30 AM This is a 42-year-old man, unemployed, single, homeless, with psychiatric history of polysubstance abuse, who presents under Barker act initiated by the Police Department. According to his paperwork the patient made statements that he wanted the police to just kill him and that he no longer wanted to live. The airfield services officer reports that he was walking himself in a public park bathroom and when he exited he requested that the police kill him. 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 On psychiatric evaluation today patient is clinically sober. He reports that yesterday he was high and amphetamine and heroin. Now he denies depression, he denies suicidal enemas ideation, he denies visual and auditory hallucinations. The patient is oriented 3. Logical coherent and relevant. Review of Systems Constitutional: DENIES: Diaphoretic episodes, Fatigue, Fever, Weight gain, Weight loss, Chills, Dizziness, Change in appetite, Night Sweats Endocrine: DENIES: Heat/cold intolerance, Polydipsia, Polyuria, Polyphagia Eyes: DENIES: Blurred vision, Diplopia, Eye inflammation, Eye pain, Vision loss , Photosensitivity, Double Vision Ears, nose, mouth, throat: DENIES: Tinnitus, Hearing loss, Vertigo, Nasal discharge, Oral lesions, Throat pain, Hoarseness, Ear Pain, Running Nose, Epistaxis, Sinus Pain, Toothache, Odynophagia Respiratory: DENIES: Apneas, Cough, Snoring, Wheezing, Hemoptysis, Sputum production, Shortness of breath Cardiovascular: DENIES: Chest pain, Palpitations, Syncope, Dyspnea on Exertion , PND, Lower Extremity Edema, Orthopnea, Claudication Gastrointestinal: DENIES: Abdominal pain, Black stools, Bloody stools, Constipation, Diarrhea, Nausea, Vomiting, Difficulty Swallowing, Anorexia Genitourinary: DENIES: Sexual dysfunction, Urinary frequency, Urinary incontinence, Urgency, Hematuria, Dysuria, Nocturia, Penile Discharge, Testicular Pain, Testicular Swelling Musculoskeletal: DENIES: Joint pain, Muscle aches, Stiffness, Joint Swelling, Back pain, Neck pain Integumentary: DENIES: Abnormal pigmentation, Nail changes, Pruritus, Rash Hematologic/lymphatic: DENIES: Bruising, Lymphadenopathy Immunologic/allergic: DENIES: Eczema, Urticaria Neurologic: DENIES: Abnormal gait, Headache, Localized weakness, Paresthesias, Seizures, Speech Problems, Tremor, Poor Balance Psychiatric: DENIES: Anxiety, Confusion, Mood changes, Depression, Hallucinations, Agitation, Suicidal Ideation, Homicidal Ideation, Delusions Past Family Social History Coded Allergies: No Known Allergies (Verified Allergy, Unknown, 01/26/18) Unable to Obtain Active Prescriptions or Reported Meds Physical Exam Vital Signs Vital Signs Date Time Temp Pulse Resp B/P (MAP) Pulse Ox O2 Delivery O2 Flow Rate FiO2 01/26/18 22:07 96.9 122 20 132/75 (94) 100 Room Air I/O 01/27/18 01/27/18 01/28/18 08:00 16:00 00:00 Intake Total 625 ml Balance 625 ml Lab Results Test 01/26/18 17:19 01/27/18 06:40 White Blood Count 12.3 TH/MM3 Red Blood Count 5.54 MIL/MM3 Hemoglobin 15.2 GM/DL Hematocrit 46.7 % Mean Corpuscular Volume 84.3 FL Mean Corpuscular Hemoglobin 27.3 PG Mean Corpuscular Hemoglobin Concent 32.4 % Red Cell Distribution Width 13.3 % Platelet Count 340 TH/MM3 Mean Platelet Volume 7.5 FL Neutrophils (%) (Auto) 80.0 % Lymphocytes (%) (Auto) 12.1 % Monocytes (%) (Auto) 7.3 % Eosinophils (%) (Auto) 0.1 % Basophils (%) (Auto) 0.5 % Neutrophils # (Auto) 9.8 TH/MM3 Lymphocytes # (Auto) 1.5 TH/MM3 Monocytes # (Auto) 0.9 TH/MM3 Eosinophils # (Auto) 0.0 TH/MM3 Basophils # (Auto) 0.1 TH/MM3 CBC Comment DIFF FINAL Differential Comment Blood Urea Nitrogen 22 MG/DL Creatinine 1.17 MG/DL Random Glucose 130 MG/DL Total Protein 8.5 GM/DL Albumin 4.6 GM/DL Calcium Level 9.6 MG/DL Alkaline Phosphatase 69 U/L Aspartate Amino Transf (AST/SGOT) 50 U/L Alanine Aminotransferase (ALT/SGPT) 34 U/L Total Bilirubin 1.1 MG/DL Sodium Level 140 MEQ/L Potassium Level 3.4 MEQ/L Chloride Level 101 MEQ/L Carbon Dioxide Level 26.8 MEQ/L Anion Gap 12 MEQ/L Estimat Glomerular Filtration Rate 68 ML/MIN Total Creatine Kinase 992 U/L Creatine Kinase MB 10.1 NG/ML Creatine Kinase MB % 1.0 % Thyroid Stimulating Hormone 3rd Gen 3.990 uIU/ML Ethyl Alcohol Level LESS THAN 3 MG/DL Urine Opiates Screen NEG Urine Barbiturates Screen NEG Urine Amphetamines Screen POS Urine Benzodiazepines Screen NEG Urine Cocaine Screen NEG Urine Cannabinoids Screen NEG Mental Status Examination Appearance: Appropriate Consciousness: Alert Orientation: x4 Motor Activity: Normal gait Speech: Unremarkable Language: Adequate Fund of Knowledge: Adequate Attention and Concentration: Adequate Memory: Unremarkable Mood: Appropriate Affect: Appropriate Thought Process & Associations: Intact Thought Content: Appropriate Hallucination Type: None Delusion Type: None Suicidal Ideation: No Suicidal Plan: No Suicidal Intention: No Homicidal Ideation: No Homicidal Plan: No Homicidal Intention: No Insight: Adequate Judgment: Adequate Assessment & Plan Problem List: (1) Substance-induced psychotic disorder with delusions ICD Codes: F19.950 - Other psychoactive substance use, unspecified with psychoactive substance-induced psychotic disorderwith delusions Status: Acute Assessment & Plan: The patient does not meet criteria for involuntary psychiatric admission at this moment. Patient is clinically sober. He denies suicidal enemas ideation, he denies visual and auditory hallucinations. Barker act will be lifted Assessment & Plan Estimated LOS: Velasquez El MD January 27, 2018 14:29
== END 2018-01-27 09:28 | disposition home or self-care (01) ==
LOC: NEDAMB 16:43 → NEPJ 01-27 09:28
DX: F19.950 Other psychoactive substance use, unspecified with psychoactive substance-induced psychotic disorder with delusions (principal); F41.9 Anxiety disorder, unspecified; Z72.0 Tobacco use
CPT/HCPCS: 80053; 80307; 82550; 82552; 84443; 85025; 99284

== ENCOUNTER 2018-02-12 19:36 | Emergency (ER) | payer SELFPAY ==
[~2018-02-12] VITALS: Ht 180.3 cm; Wt 72.5 kg
[2018-02-12] MEDS ORDERED: ZIPRASIDONE MESYLATE 20 MG VIAL IM ONE (20:00)
[2018-02-12] MEDS ORDERED: LORazepam 2 MG/ML VIAL IM ONE (20:00)
[2018-02-12 20:32] LABS: AUTOMATED NEUTROPHIL # 9.8 TH/MM3 (1.8-7.7); BASOPHIL # 0.1 TH/MM3 (0-0.2); BASOPHIL % 0.6 % (0.0-2.0); EOSINOPHIL % 0.2 % (0.0-4.0); HEMATOCRIT 44.7 % (39.0-51.0); HEMOGLOBIN 14.5 GM/DL (13.0-17.0); LYMPH % 23.2 % (9.0-44.0); LYMPHOCYTE # 3.5 TH/MM3 (1.0-4.8); MEAN CELL VOLUME 85.6 FL (80.0-100.0); MEAN CORPUSCULAR HEMOGLOBIN 27.7 PG (27.0-34.0); MEAN CORPUSCULAR HGB CONC 32.4 % (32.0-36.0); MEAN PLATELET VOLUME 7.4 FL (7.0-11.0); MONO % 10.2 % (0.0-8.0); MONOCYTE # 1.5 TH/MM3 (0-0.9); NEUT % 65.8 % (16.0-70.0); PLATELET COUNT 377 TH/MM3 (150-450); RED BLOOD COUNT 5.23 MIL/MM3 (4.50-5.90); RED CELL DISTRIBUTION WIDTH 12.8 % (11.6-17.2)
[2018-02-12 20:52] LABS: ALBUMIN 4.7 GM/DL (3.4-5.0); AST (GOT) 30 U/L (15-37); BICARBONATE 18.1 MEQ/L (21.0-32.0); BLOOD UREA NITROGEN 17 MG/DL (7-18); CALCIUM 9.6 MG/DL (8.5-10.1); CHLORIDE 103 MEQ/L (98-107); CREATININE 1.57 MG/DL (0.60-1.30); GLOMERULAR FILTRATION RATE 49 ML/MIN (>89); GLUCOSE,RANDOM 101 MG/DL (74-106); SODIUM (NA) 142 MEQ/L (136-145)
[2018-02-12 21:03] LABS: ALKALINE PHOSPHATASE 70 U/L (45-117); ALT (GPT) 25 U/L (12-78); TOTAL BILIRUBIN ADULT 0.7 MG/DL (0.2-1.0); TOTAL PROTEIN 8.8 GM/DL (6.4-8.2)
--- NOTE | 2018-02-12 22:13 | PD ---
HPI Chief Complaint: Psychiatric Symptoms Time Seen by Provider: 19:51 Travel History International Travel<30 days: No Contact w/Intl Traveler<30days: No Traveled to known affect area: No History of Present Illness HPI This is a 42-year-old male brought in under Barker act. Patient apparently went up to a harbor [employer] police and asked him to shoot him. The patient is extremely agitated and combative. The patient has an extensive history of psychiatric admissions. Patient also has a history of substance-induced mood disorder. Patient denied any substance abuse however in the past he has been positive for multiple substances. [facility] Past Medical History Anxiety: Yes Diminished Hearing: No Psychiatric: Yes Immunizations Current: Yes Social History Alcohol Use: No Tobacco Use: Yes Substance Use: Yes Allergies-Medications (Allergen,Severity, Reaction): Coded Allergies: No Known Allergies (Verified Allergy, Unknown, 01/26/18) Reported Meds & Prescriptions Reported Meds & Active Scripts Active Active Prescriptions or Reported Medications Unobtainable Review of Systems ROS Limitations: Uncooperative, Refused, Combative, Psychotic Except as stated in HPI: all other systems reviewed are Neg Physical Exam Narrative GENERAL: Well-developed well-nourished male who is extremely agitated and confrontational and combative. SKIN: Focused skin assessment warm/dry. HEAD: Atraumatic. Normocephalic. EYES: Pupils equal and round. No scleral icterus. No injection or drainage. ENT: No nasal bleeding or discharge. Mucous membranes pink and moist. NECK: Trachea midline. Supple. CARDIOVASCULAR: Sinus tachycardia with a rate of 112. No murmur appreciated. RESPIRATORY: No accessory muscle use. Clear to auscultation. Breath sounds equal bilaterally. GASTROINTESTINAL: Abdomen soft, non-tender, nondistended. Hepatic and splenic margins not palpable. MUSCULOSKELETAL: No obvious deformities. No clubbing. No cyanosis. No edema. NEUROLOGICAL: Awake and agitated and combative. No obvious cranial nerve deficits. Motor grossly within normal limits. Normal speech. PSYCHIATRIC: Combative and acutely agitated and psychotic. Data Data Last Documented VS Vital Signs Date Time Temp Pulse Resp B/P (MAP) Pulse Ox O2 Delivery O2 Flow Rate FiO2 02/13/18 04:00 107 17 136/78 (97) 99 Room Air Orders Orders Complete Blood Count With Diff (02/12/18 19:53) Comprehensive Metabolic Panel (02/12/18 19:53) Thyroid Stimulating Hormone (02/12/18 19:53) Psych Screen (02/12/18 19:53) Restraints Violent (02/12/18 19:53) Drug Screen, Random Urine (02/12/18 19:53) Alcohol (Ethanol) (02/12/18 19:53) Ziprasidone Inj (Geodon Inj) (02/12/18 20:00) Lorazepam Inj (Ativan Inj) (02/12/18 20:00) Sodium Chlor 0.9% 1000 Ml Inj (Ns 1000 M (02/13/18 00:30) Labs Laboratory Tests Test 02/12/18 20:00 White Blood Count 15.0 TH/MM3 Red Blood Count 5.23 MIL/MM3 Hemoglobin 14.5 GM/DL Hematocrit 44.7 % Mean Corpuscular Volume 85.6 FL Mean Corpuscular Hemoglobin 27.7 PG Mean Corpuscular Hemoglobin Concent 32.4 % Red Cell Distribution Width 12.8 % Platelet Count 377 TH/MM3 Mean Platelet Volume 7.4 FL Neutrophils (%) (Auto) 65.8 % Lymphocytes (%) (Auto) 23.2 % Monocytes (%) (Auto) 10.2 % Eosinophils (%) (Auto) 0.2 % Basophils (%) (Auto) 0.6 % Neutrophils # (Auto) 9.8 TH/MM3 Lymphocytes # (Auto) 3.5 TH/MM3 Monocytes # (Auto) 1.5 TH/MM3 Eosinophils # (Auto) 0.0 TH/MM3 Basophils # (Auto) 0.1 TH/MM3 CBC Comment DIFF FINAL Differential Comment Blood Urea Nitrogen 17 MG/DL Creatinine 1.57 MG/DL Random Glucose 101 MG/DL Total Protein 8.8 GM/DL Albumin 4.7 GM/DL Calcium Level 9.6 MG/DL Alkaline Phosphatase 70 U/L Aspartate Amino Transf (AST/SGOT) 30 U/L Alanine Aminotransferase (ALT/SGPT) 25 U/L Total Bilirubin 0.7 MG/DL Sodium Level 142 MEQ/L Potassium Level 3.5 MEQ/L Chloride Level 103 MEQ/L Carbon Dioxide Level 18.1 MEQ/L Anion Gap 21 MEQ/L Estimat Glomerular Filtration Rate 49 ML/MIN Thyroid Stimulating Hormone 3rd Gen 2.760 uIU/ML Ethyl Alcohol Level LESS THAN 3 MG/DL MDM Medical Decision Making Medical Screen Exam Complete: Yes Emergency Medical Condition: Yes Differential Diagnosis Substance-induced psychosis versus psychosis versus metabolic derangement Narrative Course 42-year-old male with history of substance abuse, psychosis previously, presents here today under a Barker act after he reportedly told the police to shoot him. The patient is refusing to give a urine specimen. His blood alcohol level is 0. He did have acute kidney injury. He was given 2 L of IV fluids. He will be medically cleared for psychiatric evaluation. The patient will required Geodon and Ativan when he arrived because he was extremely combative and aggressive towards staff. He was also restrained with leather restraints. Diagnosis Primary Impression: Acute psychosis Additional Impressions: History of polysubstance abuse Medically cleared Scripts Unable to Obtain Active Prescriptions or Reported Meds Abhishek Curran MD Feb 12, 2018 22:12
[2018-02-13] VITALS (8 sets, daily range): BP systolic 118–148; BP diastolic 58–80; PULSE 88–110; RESP 14–20; O2SAT 97–100
[2018-02-13] MEDS ORDERED: SODIUM CHLOR 0.9% 1000 ML INJ 1,000 ML IV ONE (00:30)
[2018-02-13] MEDS ORDERED: LORazepam 2 MG/ML VIAL IV PUSH ONE ×2 (05:30→08:15)
[2018-02-13] MEDS ORDERED: diphenhydrAMINE HCL 50 MG/ML VIAL IV PUSH ONE (08:15)
--- NOTE | 2018-02-13 17:18 | PD ---
Physical Exam Time Seen by Provider: : Narrative 1718: I received a call from JUAN MIGUEL Castro and the patient is being aggressive. Ativan, Haldol, restraints ordered. Data Data Last Documented VS Vital Signs Date Time Temp Pulse Resp B/P (MAP) Pulse Ox O2 Delivery O2 Flow Rate FiO2 02/14/18 15:13 02/14/18 06:49 98.2 77 18 100 Room Air Orders Orders Complete Blood Count With Diff (02/12/18 19:53) Comprehensive Metabolic Panel (02/12/18 19:53) Thyroid Stimulating Hormone (02/12/18 19:53) Psych Screen (02/12/18 19:53) Restraints Violent (02/12/18 19:53) Drug Screen, Random Urine (02/12/18 19:53) Alcohol (Ethanol) (02/12/18 19:53) Ziprasidone Inj (Geodon Inj) (02/12/18 20:00) Lorazepam Inj (Ativan Inj) (02/12/18 20:00) Sodium Chlor 0.9% 1000 Ml Inj (Ns 1000 M (02/13/18 00:30) Lorazepam Inj (Ativan Inj) (02/13/18 05:30) Diet Regular Basic (02/13/18 Breakfast) Lorazepam Inj (Ativan Inj) (02/13/18 08:15) Diphenhydramine Inj (Benadryl Inj) (02/13/18 08:15) Diet Regular Basic (02/13/18 Lunch) Diet Regular Basic (02/13/18 Dinner) Lorazepam Inj (Ativan Inj) (02/13/18 17:30) Haloperidol Inj (Haldol Inj) (02/13/18 17:30) Restraints Violent (02/13/18 17:16) Diet Regular Basic (02/14/18 Breakfast) Diet Regular Basic (02/14/18 Lunch) Ed Discharge Order (02/14/18 14:59) Labs Laboratory Tests Test 02/12/18 20:00 White Blood Count 15.0 TH/MM3 Red Blood Count 5.23 MIL/MM3 Hemoglobin 14.5 GM/DL Hematocrit 44.7 % Mean Corpuscular Volume 85.6 FL Mean Corpuscular Hemoglobin 27.7 PG Mean Corpuscular Hemoglobin Concent 32.4 % Red Cell Distribution Width 12.8 % Platelet Count 377 TH/MM3 Mean Platelet Volume 7.4 FL Neutrophils (%) (Auto) 65.8 % Lymphocytes (%) (Auto) 23.2 % Monocytes (%) (Auto) 10.2 % Eosinophils (%) (Auto) 0.2 % Basophils (%) (Auto) 0.6 % Neutrophils # (Auto) 9.8 TH/MM3 Lymphocytes # (Auto) 3.5 TH/MM3 Monocytes # (Auto) 1.5 TH/MM3 Eosinophils # (Auto) 0.0 TH/MM3 Basophils # (Auto) 0.1 TH/MM3 CBC Comment DIFF FINAL Differential Comment Blood Urea Nitrogen 17 MG/DL Creatinine 1.57 MG/DL Random Glucose 101 MG/DL Total Protein 8.8 GM/DL Albumin 4.7 GM/DL Calcium Level 9.6 MG/DL Alkaline Phosphatase 70 U/L Aspartate Amino Transf (AST/SGOT) 30 U/L Alanine Aminotransferase (ALT/SGPT) 25 U/L Total Bilirubin 0.7 MG/DL Sodium Level 142 MEQ/L Potassium Level 3.5 MEQ/L Chloride Level 103 MEQ/L Carbon Dioxide Level 18.1 MEQ/L Anion Gap 21 MEQ/L Estimat Glomerular Filtration Rate 49 ML/MIN Thyroid Stimulating Hormone 3rd Gen 2.760 uIU/ML Ethyl Alcohol Level LESS THAN 3 MG/DL MDM Supervised Visit with HOLLY: No Narrative Course 1718: I received a call from JUAN MIGUEL Castro and the patient is being aggressive. Ativan, Haldol, restraints ordered. Diagnosis Primary Impression: Acute psychosis Additional Impressions: History of polysubstance abuse Medically cleared Scripts Unable to Obtain Active Prescriptions or Reported Meds Leatha Elizalde Feb 13, 2018 17:18
[2018-02-13] MEDS ORDERED: LORazepam 2 MG/ML VIAL IM ONE (17:30)
[2018-02-13] MEDS ORDERED: HALOPERIDOL LACTATE 5 MG/ML AMP IM ONE (17:30)
[2018-02-14 00:24] VITALS: BP 104/65; PULSE 74; RESP 16; TEMP 97.9; O2SAT 99
[2018-02-14 06:49] VITALS: BP 96/54; PULSE 77; RESP 18; TEMP 98.2; O2SAT 100
--- NOTE | 2018-02-14 14:59 | PD ---
Physical Exam Time Seen by Provider: 14:[address] Hudson has evaluated the patient, lifted Barker act and cleared the patient for discharge. Data Data Last Documented VS Vital Signs Date Time Temp Pulse Resp B/P (MAP) Pulse Ox O2 Delivery O2 Flow Rate FiO2 02/14/18 06:49 98.2 77 18 96/54 (68) 100 Room Air Orders Orders Complete Blood Count With Diff (02/12/18 19:53) Comprehensive Metabolic Panel (02/12/18 19:53) Thyroid Stimulating Hormone (02/12/18 19:53) Psych Screen (02/12/18 19:53) Restraints Violent (02/12/18 19:53) Drug Screen, Random Urine (02/12/18 19:53) Alcohol (Ethanol) (02/12/18 19:53) Ziprasidone Inj (Geodon Inj) (02/12/18 20:00) Lorazepam Inj (Ativan Inj) (02/12/18 20:00) Sodium Chlor 0.9% 1000 Ml Inj (Ns 1000 M (02/13/18 00:30) Lorazepam Inj (Ativan Inj) (02/13/18 05:30) Diet Regular Basic (02/13/18 Breakfast) Lorazepam Inj (Ativan Inj) (02/13/18 08:15) Diphenhydramine Inj (Benadryl Inj) (02/13/18 08:15) Diet Regular Basic (02/13/18 Lunch) Diet Regular Basic (02/13/18 Dinner) Lorazepam Inj (Ativan Inj) (02/13/18 17:30) Haloperidol Inj (Haldol Inj) (02/13/18 17:30) Restraints Violent (02/13/18 17:16) Diet Regular Basic (02/14/18 Breakfast) Diet Regular Basic (02/14/18 Lunch) Labs Laboratory Tests Test 02/12/18 20:00 White Blood Count 15.0 TH/MM3 Red Blood Count 5.23 MIL/MM3 Hemoglobin 14.5 GM/DL Hematocrit 44.7 % Mean Corpuscular Volume 85.6 FL Mean Corpuscular Hemoglobin 27.7 PG Mean Corpuscular Hemoglobin Concent 32.4 % Red Cell Distribution Width 12.8 % Platelet Count 377 TH/MM3 Mean Platelet Volume 7.4 FL Neutrophils (%) (Auto) 65.8 % Lymphocytes (%) (Auto) 23.2 % Monocytes (%) (Auto) 10.2 % Eosinophils (%) (Auto) 0.2 % Basophils (%) (Auto) 0.6 % Neutrophils # (Auto) 9.8 TH/MM3 Lymphocytes # (Auto) 3.5 TH/MM3 Monocytes # (Auto) 1.5 TH/MM3 Eosinophils # (Auto) 0.0 TH/MM3 Basophils # (Auto) 0.1 TH/MM3 CBC Comment DIFF FINAL Differential Comment Blood Urea Nitrogen 17 MG/DL Creatinine 1.57 MG/DL Random Glucose 101 MG/DL Total Protein 8.8 GM/DL Albumin 4.7 GM/DL Calcium Level 9.6 MG/DL Alkaline Phosphatase 70 U/L Aspartate Amino Transf (AST/SGOT) 30 U/L Alanine Aminotransferase (ALT/SGPT) 25 U/L Total Bilirubin 0.7 MG/DL Sodium Level 142 MEQ/L Potassium Level 3.5 MEQ/L Chloride Level 103 MEQ/L Carbon Dioxide Level 18.1 MEQ/L Anion Gap 21 MEQ/L Estimat Glomerular Filtration Rate 49 ML/MIN Thyroid Stimulating Hormone 3rd Gen 2.760 uIU/ML Ethyl Alcohol Level LESS THAN 3 MG/DL MDM Supervised Visit with HOLLY: No Narrative Course Dr. Hudson has evaluated the patient, lifted Lucero lunsford and cleared the patient for discharge. Patient contracts safety. Denies suicidal or homicidal ideations. Patient will be provided community resource packet to [facility]/ [facility] for follow-up. Has friends and family for support. Patient was medically cleared by alternate provider prior to psych screening. Patient has been evaluated by psychiatry and and is now cleared for discharge. Diagnosis Primary Impression: Acute psychosis Additional Impression: History of polysubstance abuse Referrals: [facility] (Out patient) [facility] Primary Care Physician Psychiatrist Dariela [facility] Patient Instructions: General Instructions, Polysubstance Abuse (ED) Departure Forms: Tests/Procedures Additional Instruction: Contract safety to your self and others Follow-up with psychiatry Follow-up with primary care provider Follow-up with Slade Guerrero Return to the emergency department immediately with worsening of symptoms Med/Other Pt SpecificInfo: No Change to Meds, No Meds Exist/No RX given Scripts Unable to Obtain Active Prescriptions or Reported Meds Disposition: DISCHARGE HOME Condition: Stable Leatha Elizalde Feb 14, 2018 14:59
--- NOTE | 2018-02-14 15:17 | PD.PSY.CON ---
Provisional Diagnosis Admission Date Date of consultation 02/14/2018 [place] I. 1. Adjustment disorder, unspecified Suspected amphetamine intoxication, now resolved 2. History of amphetamine abuse [place] II. Deferred History of Present Illness Service Psychiatry Consult Requested By Emergency department Reason for Consult Barker act Primary Care Physician No Primary Care Physician [facility] Mr. Raphael is a 42-year-old male with a history of substance use issues well- known to the psychiatric service here from multiple previous ED visits. He was brought in under a Barker act after he allegedly walked up to an officer and asked the officer to shoot him. He has refused to provide a urine sample for toxicology today, but his urine toxicology has been positive for amphetamine in the past. Reviewing the electronic medical record, I note that the patient was seen most recently in consultation by Dr. Pena under similar circumstances last month. Patient seen and examined. Chart reviewed. Case discussed with nursing staff. On my examination today, the patient is clinically sober. He tells me "I just want to go home." He denies any suicidal or homicidal ideation, intent or plan. He contracts for safety. Affect is somewhat dysphoric, but I can elicit no depressive or hypomanic/manic symptoms. He denies any audiovisual hallucinations. Patient says that he wanted officers to shoot him secondary to paranoid delusions, but I can elicit no delusional beliefs presently. Remainder of the psychiatric ROS is negative. No acute physical complaints. Patient is requesting discharge from the ED as noted above. Past psychiatric history: Patient has a history of substance use issues. He denies any outpatient psychiatric treatment presently. He denies any history of psychiatric admissions or suicide attempts. Family history: Patient denies any family history of mental illness or suicide. Chemical dependency history: The patient is evasive regarding substance use. When I try to inquire about his substance use, patient replies to my request for information, "I don't give a fuck." Social history: Patient is homeless. He has a high school education and some college. He does not work. He is single. He has no children. He denies any access to guns or firearms. He denies any active legal issues. Review of Systems Except as stated in HPI: all other systems reviewed are Neg Past Family Social History Coded Allergies: No Known Allergies (Verified Allergy, Unknown, 01/26/18) Past Medical History See electronic medical record Unable to Obtain Active Prescriptions or Reported Meds No reported home medications Patient's Strengths (min. 2) Attending to basic needs. Verbally fluent. Physical Exam Physical exam completed by ED provider. On my examination today, the patient appears to be in no acute physical distress. No motor abnormalities noted. No signs of intoxication or withdrawal noted. Labs and vitals reviewed: Vital Signs Vital Signs Date Time Temp Pulse Resp B/P (MAP) Pulse Ox O2 Delivery O2 Flow Rate FiO2 02/14/18 06:49 98.2 77 18 96/54 (68) 100 Room Air I/O 02/14/18 02/14/18 02/15/18 08:00 16:00 00:00 Intake Total 591 ml Balance 591 ml Lab Results Laboratory Tests Test 02/12/18 20:00 White Blood Count 15.0 TH/MM3 Red Blood Count 5.23 MIL/MM3 Hemoglobin 14.5 GM/DL Hematocrit 44.7 % Mean Corpuscular Volume 85.6 FL Mean Corpuscular Hemoglobin 27.7 PG Mean Corpuscular Hemoglobin Concent 32.4 % Red Cell Distribution Width 12.8 % Platelet Count 377 TH/MM3 Mean Platelet Volume 7.4 FL Neutrophils (%) (Auto) 65.8 % Lymphocytes (%) (Auto) 23.2 % Monocytes (%) (Auto) 10.2 % Eosinophils (%) (Auto) 0.2 % Basophils (%) (Auto) 0.6 % Neutrophils # (Auto) 9.8 TH/MM3 Lymphocytes # (Auto) 3.5 TH/MM3 Monocytes # (Auto) 1.5 TH/MM3 Eosinophils # (Auto) 0.0 TH/MM3 Basophils # (Auto) 0.1 TH/MM3 CBC Comment DIFF FINAL Differential Comment Blood Urea Nitrogen 17 MG/DL Creatinine 1.57 MG/DL Random Glucose 101 MG/DL Total Protein 8.8 GM/DL Albumin 4.7 GM/DL Calcium Level 9.6 MG/DL Alkaline Phosphatase 70 U/L Aspartate Amino Transf (AST/SGOT) 30 U/L Alanine Aminotransferase (ALT/SGPT) 25 U/L Total Bilirubin 0.7 MG/DL Sodium Level 142 MEQ/L Potassium Level 3.5 MEQ/L Chloride Level 103 MEQ/L Carbon Dioxide Level 18.1 MEQ/L Anion Gap 21 MEQ/L Estimat Glomerular Filtration Rate 49 ML/MIN Thyroid Stimulating Hormone 3rd Gen 2.760 uIU/ML Ethyl Alcohol Level LESS THAN 3 MG/DL Mental Status Examination Appearance: Appropriate Consciousness: Alert Orientation: Person, Place (At least) Motor Activity: Other (No motor abnormalities noted) Speech: Unremarkable Language: Adequate Fund of Knowledge: Adequate Attention and Concentration: Adequate Memory: Unremarkable (Grossly intact on clinical exam) Mood: Other (Mildly dysphoric) Affect: Blunt Thought Process & Associations: Intact, Logical, Linear Thought Content: Appropriate Hallucination Type: None Delusion Type: None Suicidal Ideation: No Suicidal Plan: No Suicidal Intention: No Homicidal Ideation: No Homicidal Plan: No Homicidal Intention: No Mental Status Exam Remarks Insight and judgment are likely chronically poor Assessment & Plan Problem List: (1) Adjustment disorder ICD Codes: F43.20 - Adjustment disorder, unspecified Assessment & Plan 42-year-old male with psychiatric history as detailed above who presents under Barker act. Although the patient has refused to provide a urine sample for toxicology, amphetamine intoxication, now resolved is suspected based on presentation and history. There is no evidence of unstable mental illness as defined under Barker act in this patient at this time. He denies suicidal or homicidal ideation. He appears to be attending to his basic needs. Synthesizing this information and based on the available evidence, I immigration coordinator that the patient does not presently meet the Barker act criteria. I have lifted the Barker act. I have recommended outpatient mental health and chemical dependency follow-up, and the nurse will provide the appropriate referrals. I have counseled the patient regarding warning signs for need to return to the psychiatric emergency room as part of a general safety plan. Patient is otherwise psychiatrically clear for discharge from the ED. Thank you very much for this consultation. Problem Qualifiers (1) Adjustment disorder: Qualified Codes: F43.20 - Adjustment disorder, unspecified Brown Velasco MD Feb 14, 2018 15:17
== END 2018-02-14 16:47 | disposition home or self-care (01) ==
LOC: NEPE 19:36 → NEPJ 02-14 16:47
DX: F23 Brief psychotic disorder (principal); F19.10 Other psychoactive substance abuse, uncomplicated; Z72.0 Tobacco use
CPT/HCPCS: 80053; 80307; 84443; 85025; 96361; 96372; 96374; 96375; 99285; J1200; J1630; J2060; J3486; J7030